=== PATIENT | male | born 1960 | race Caucasian/White ===

== ENCOUNTER 2017-07-21 15:11 | Emergency (ER) | payer MEDICAID ==
[~2017-07-21 15:11] MED LIST: ASPI-611 PO; CYCL-1 PO; GUAI600T89 PO; HYDR-569 PO; LEVA15HF4 INH
== END 2017-07-21 18:48 | disposition left against medical advice (07) ==
LOC: ER 15:12
DX: R06.00 Dyspnea, unspecified (principal); Z53.21 Procedure and treatment not carried out due to patient leaving prior to being seen by health care provider
CPT/HCPCS: 96375

== ENCOUNTER 2017-10-17 16:59 | Emergency (ER) | payer MEDICAID ==
[~2017-10-17] VITALS: Ht 170.2 cm; Wt 87.0 kg
[2017-10-17 17:16] VITALS: BP 131/96
== END 2017-10-17 18:29 | disposition home or self-care (01) ==
LOC: ER 17:01
DX: F10.10 Alcohol abuse, uncomplicated (principal); J44.9 Chronic obstructive pulmonary disease, unspecified; G89.29 Other chronic pain; Z98.890 Other specified postprocedural states; F12.90 Cannabis use, unspecified, uncomplicated; Z59.0 Homelessness; Z56.0 Unemployment, unspecified; Z88.5 Allergy status to narcotic agent; Z88.2 Allergy status to sulfonamides; Z79.82 Long term (current) use of aspirin; Z79.899 Other long term (current) drug therapy
CPT/HCPCS: 71045; 99283

== ENCOUNTER 2018-01-10 20:57 | Inpatient (IN) | payer MEDICAID ==
[~2018-01-10] VITALS: Ht 170.2 cm; Wt 85.0 kg
[2018-01-10 22:06] LABS: BASOPHILS % (AUTO) 0.3 % (0-1); EOSINOPHILS % (AUTO) 0.2 % (0-6); HEMATOCRIT 42.1 % (42.0-52.0); HEMOGLOBIN 14.6 g/dl (14.0-17.9); LYMPHOCYTES # (AUTO) 1.1 X10'3 (1.1-4.8); LYMPHOCYTES % (AUTO) 6.6 % (21-51); MEAN CORPUSCULAR HEMOGLOBIN 31.9 PG (27.0-31.0); MEAN CORPUSCULAR HGB CONC 34.7 % (33.0-36.5); MEAN CORPUSCULAR VOLUME 91.9 FL (78-98); MEAN PLATELET VOLUME 7.5 FL (7.4-10.4); MONOCYTES # (AUTO) 0.9 X10'3 (0-0.9); MONOCYTES % (AUTO) 5.3 % (2-12); NEUTROPHILS # (AUTO) 14.5 X10'3 (1.8-7.7); NEUTROPHILS % (AUTO) 87.6 % (42-75); PLATELET COUNT 346 X10'3 (140-440); RED BLOOD COUNT 4.58 X10'6 (4.70-6.10); RED CELL DISTRIBUTION WIDTH 11.9 % (11.5-14.5); WHITE BLOOD COUNT 16.6 X10'3 (4.5-11.0)
[2018-01-10] MEDS ORDERED: LORazepam 1 MG tablet PO ONE (22:15)
[2018-01-10 22:16] LABS: ETHANOL 0.033 GM/DL (0.0-0.010)
[2018-01-10] MEDS: diphenhydrAMINE 25mg capsule PO ONE ×2 (22:25→22:53)
[2018-01-10] MEDS: clindamycin 150mg capsule PO SCH (22:25)
[2018-01-10 23:03] LABS: URINE AMPHETAMINE SCREEN POSITIVE (Neg); URINE BARBITUATE SCREEN NEGATIVE (Neg); URINE BENZODIAZEPINES SCREEN NEGATIVE (Neg); URINE CANNABINOID SCREEN POSITIVE (Neg); URINE COCAINE SCREEN NEGATIVE (Neg); URINE METHADONE SCREEN NEGATIVE (Neg); URINE OPIATE SCREEN POSITIVE (Neg); URINE PHENCYCLIDINE SCREEN NEGATIVE (Neg)
[2018-01-10] MEDS ORDERED: OLANZapine 5mg rapidly disint. tablet PO ONE (23:05)
[2018-01-11] MEDS ORDERED: haloperidol lactate 5mg/ml inj IM ONE (01:05)
[2018-01-11] MEDS ORDERED: diphenhydrAMINE 50 mg/ml inj IM ONE (01:05)
[2018-01-11] MEDS ORDERED: LORazepam 2 mg/ml vial IM ONE (01:05)
[2018-01-11] MEDS: clindamycin 150mg capsule PO SCH ×4 (04:07→20:19)
[2018-01-11 05:59] LABS: ALBUMIN 4.4 G/DL (3.4-5.0); ANION GAP 17 (8-16); BLOOD UREA NITROGEN 21 MG/DL (7-18); BUN/CREATININE RATIO 20.2 (5.4-32.0); CALCIUM 9.4 MG/DL (8.5-10.1); CHLORIDE 98 MMOL/L (99-107); CREATININE 1.04 MG/DL (0.60-1.10); GLUCOSE 97 MG/DL (70-104); SODIUM 134 MMOL/L (135-145); TOTAL CARBON DIOXIDE 18.9 MMOL/L (24-32); eGFR 74 ML/MIN
[2018-01-11] MEDS ORDERED: normal saline 1000ML IV soln IV ONE (07:15)
[2018-01-11] MEDS ORDERED: piperacillin/tazo 3.375gm/50ml 50 ML IV ONE (07:15)
[2018-01-11] MEDS ORDERED: vancomycin/NS 1 GM ADD-VANTAGE 250 ML IV ONE (07:15)
[2018-01-11] MEDS ORDERED: iohexol 300mg/ml 100ml inj. ONE (07:28)
[2018-01-11] MEDS ORDERED: magnesium 1gm/100ml D5W IVPB 100 ML IV PRN (15:20)
[2018-01-11] MEDS ORDERED: magnesium Cl slow-release 64mg tablet PO PRN (15:20)
[2018-01-11] MEDS: K and/or MAG REPLACEMENT MC SCH (15:20)
[2018-01-11] MEDS ORDERED: mag hydrox/Alum hydrox/simeth 30ml oral suspension PO PRN (15:20)
[2018-01-11] MEDS ORDERED: magnesium hydroxide 30ml (MOM) UD suspension PO PRN (15:20)
[2018-01-11] MEDS ORDERED: potassium Cl 40MEQ/NS 500ml 500 ML IV PRN ×2 (15:20)
[2018-01-11] MEDS ORDERED: ondansetron/PF 4mg/2ml inj IV PRN (15:20)
[2018-01-11] MEDS ORDERED: magnesium 4gm in 100ml NS 100 ML IV PRN (15:20)
[2018-01-11] MEDS ORDERED: acetaminophen 325mg tablet PO PRN ×2 (15:20)
[2018-01-11] MEDS ORDERED: diphenhydrAMINE 25mg capsule PO PRN (15:20)
[2018-01-11] MEDS ORDERED: potassium Cl 20 mEq SR tablet PO PRN ×2 (15:20)
[2018-01-11] MEDS ORDERED: HYDROcodone/acetaminophen 5mg/325mg tablet PO PRN (15:20)
[2018-01-11] MEDS: normal saline 1000ml 1,000 ML IV SCH (15:52)
[2018-01-11 16:32] LABS: COLOR,URINE YELLOW (Yellow); GLUCOSE, URINE NEGATIVE (Neg); KETONES,URINE >=80 mg/dl (Neg); LEUKOCYTE ESTERASE ,URINE SMALL (Neg); NITRITES, URINE NEGATIVE (Neg); OCCULT BLOOD,URINE NEGATIVE (Neg); PROTEIN,URINE NEGATIVE (Neg)
[2018-01-11 16:35] LABS: UA COLLECTION TYPE URINAL
[2018-01-11 16:36] LABS: CLARITY,URINE Cloudy (Clear)
[2018-01-11 16:41] LABS: BACTERIA,URINE NONE SEEN /HPF (Neg); RBC,URINE NONE SEEN /HPF (0-2); SQUAMOUS EPITHELIAL CELL,UR FEW /LPF (FEW); WBC,URINE 0-4 /HPF (0-4)
[2018-01-11 16:43] LABS: AMORPHOUS URATES 4+
[2018-01-11 17:00] VITALS: BP 155/89
[2018-01-11] MEDS ORDERED: LORazepam 2 mg/ml vial IV PRN (17:00)
[2018-01-11] MEDS ORDERED: haloperidol 5mg tablet PO PRN (17:00)
[2018-01-11] MEDS ORDERED: thiamine inj. 100 MG in normal saline 100ml IV soln 100 ML IV ONE (17:00)
[2018-01-11] MEDS ORDERED: haloperidol lactate 5mg/ml inj IM PRN (17:00)
[2018-01-11] MEDS ORDERED: dicyclomine 10 MG capsule PO PRN (17:00)
[2018-01-11 18:00] VITALS: BP 141/80
[2018-01-11] MEDS: ipratropium/albuterol 3ml nebule NEB SCH ×2 (19:30→23:04)
[2018-01-11] MEDS: lactobacillus rhamnosus 10,000 MMU CELLS/CAPSULE PO SCH (20:19)
[2018-01-11] MEDS: heparin, porcine 5000 units/ml vial SQ SCH (20:19)
[2018-01-11] MEDS: sodium bicarbonate 650mg tablet PO SCH (20:19)
[2018-01-11] MEDS ORDERED: SERT25TA PO (20:37)
[2018-01-11] MEDS ORDERED: GABA-532 PO (20:39)
[2018-01-11] MEDS ORDERED: temazepam 15mg capsule PO PRN (21:00)
[2018-01-11] MEDS: piperacillin/tazo 3.375gm/50ml 50 ML IV SCH (21:21)
[2018-01-11] MEDS: HYDROcodone/acetaminophen 10/325mg tab PO PRN (21:21)
[2018-01-12] VITALS: BP 123/81
[2018-01-12] MEDS ORDERED: vancomycin inj 1,250 MG in normal saline 250ml IV soln 250 ML IV SCH ×2
[2018-01-12] MEDS: piperacillin/tazo 3.375gm/50ml 50 ML IV SCH ×4 (02:05→19:17)
[2018-01-12] MEDS: clindamycin 150mg capsule PO SCH ×4 (02:05→19:18)
[2018-01-12] MEDS: ipratropium/albuterol 3ml nebule NEB SCH ×3 (03:00→11:00)
[2018-01-12] MEDS: HYDROcodone/acetaminophen 10/325mg tab PO PRN ×4 (03:48→22:45)
[2018-01-12] MEDS: vancomycin inj 1,250 MG in normal saline 250ml IV soln 250 ML IV SCH ×3 (03:48→20:27)
[2018-01-12] MEDS: normal saline 1000ml 1,000 ML IV SCH ×3 (05:51→17:48)
[2018-01-12 07:00] VITALS: BP 121/76
[2018-01-12] MEDS: heparin, porcine 5000 units/ml vial SQ SCH ×2 (08:00→19:18)
[2018-01-12] MEDS: K and/or MAG REPLACEMENT MC SCH (08:00)
[2018-01-12 08:23] LABS: C DIFF ANTIGEN SEE COMMENTS (NEGATIVE); C DIFF SPECIMEN=DIARRHEA? ACCEPTABLE; C DIFFICILE TOXINS A&B NEGATIVE (Neg)
[2018-01-12] MEDS: thiamine 100mg tablet PO SCH (08:26)
[2018-01-12] MEDS: multivitamins, therapeutics tablet PO SCH (08:27)
[2018-01-12] MEDS: pantoprazole 40mg Tablet.DR PO SCH (08:27)
[2018-01-12] MEDS: sodium bicarbonate 650mg tablet PO SCH ×3 (08:27→20:29)
[2018-01-12] MEDS: folic acid 1mg tablet PO SCH (08:27)
[2018-01-12] MEDS: lactobacillus rhamnosus 10,000 MMU CELLS/CAPSULE PO SCH ×2 (08:27→19:18)
[2018-01-12 08:45] LABS: CRYPTOSPORIDIUM AG NEGATIVE (Neg); GIARDIA LAMBLIA AG NEGATIVE (Neg)
[2018-01-12 12:02] LABS: C DIFF TOXIN (LAMP) NEGATIVE (NEG)
[2018-01-12 12:16] VITALS: BP 127/81
[2018-01-12] MEDS ORDERED: ipratropium/albuterol 3ml nebule NEB PRN (13:55)
[2018-01-12 15:25] LABS: BASOPHILS % (AUTO) 0.5 % (0-1); EOSINOPHILS # (AUTO) 0.2 X10'3 (0-0.9); EOSINOPHILS % (AUTO) 2.6 % (0-6); HEMOGLOBIN 12.7 g/dl (14.0-17.9); LYMPHOCYTES # (AUTO) 1.8 X10'3 (1.1-4.8); MEAN CORPUSCULAR HEMOGLOBIN 32.3 PG (27.0-31.0); MEAN CORPUSCULAR HGB CONC 35.2 % (33.0-36.5); MEAN CORPUSCULAR VOLUME 91.6 FL (78-98); MEAN PLATELET VOLUME 7.9 FL (7.4-10.4); MONOCYTES # (AUTO) 0.9 X10'3 (0-0.9); MONOCYTES % (AUTO) 10.7 % (2-12); NEUTROPHILS # (AUTO) 5.8 X10'3 (1.8-7.7); NEUTROPHILS % (AUTO) 65.2 % (42-75); PLATELET COUNT 267 X10'3 (140-440); RED BLOOD COUNT 3.93 X10'6 (4.70-6.10); RED CELL DISTRIBUTION WIDTH 11.9 % (11.5-14.5); WHITE BLOOD COUNT 8.8 X10'3 (4.5-11.0)
[2018-01-12 15:39] LABS: ALANINE AMINOTRANSFERASE 35 U/L (12-78); ALBUMIN 2.8 G/DL (3.4-5.0); ALBUMIN/GLOBULIN RATIO 0.7 (1.1-1.5); ALKALINE PHOSPHATASE 59 IU/L (46-116); ANION GAP 9 (8-16); ASPARTATE AMINO TRANSFERASE 48 U/L (10-37); BILIRUBIN,TOTAL 0.3 MG/DL (0.1-1.0); BLOOD UREA NITROGEN 17 MG/DL (7-18); BUN/CREATININE RATIO 18.1 (5.4-32.0); CHLORIDE 104 MMOL/L (99-107); CREATININE 0.94 MG/DL (0.60-1.10); GLUCOSE 117 MG/DL (70-104); PHOSPHORUS 2.6 MG/DL (2.3-4.5); POTASSIUM 3.6 MMOL/L (3.5-5.1); SODIUM 139 MMOL/L (135-145); TOTAL CARBON DIOXIDE 25.7 MMOL/L (24-32); TOTAL PROTEIN 6.6 G/DL (6.4-8.2); eGFR 83 ML/MIN
[2018-01-12] MEDS ORDERED: non-formulary drug (Levalbuterol Tartrate (Xopenex Hfa) 2 PUFFS) INH SCH (16:20)
[2018-01-12] MEDS ORDERED: cyclobenzaprine 10mg tablet PO PRN (16:20)
[2018-01-12] MEDS: sertraline 25mg tablet PO SCH (17:49)
[2018-01-12 18:00] VITALS: BP 136/75
[2018-01-12] MEDS: guaiFENesin ER 600mg tablet PO SCH (19:18)
[2018-01-12] MEDS ORDERED: gabapentin 300mg capsule PO SCH (21:00)
[2018-01-12] MEDS ORDERED: VANCOMYCIN LEVEL IV ONE (23:30)
[2018-01-13] VITALS: BP 139/74
[2018-01-13] MEDS ORDERED: VANCOMYCIN LEVEL IV ONE (02:30)
[2018-01-13] MEDS: piperacillin/tazo 3.375gm/50ml 50 ML IV SCH ×3 (02:50→13:15)
[2018-01-13] MEDS: clindamycin 150mg capsule PO SCH ×3 (02:50→13:15)
[2018-01-13] MEDS: vancomycin inj 1,250 MG in normal saline 250ml IV soln 250 ML IV SCH ×2 (03:00→11:00)
[2018-01-13] MEDS: K and/or MAG REPLACEMENT MC SCH (07:10)
[2018-01-13] MEDS: normal saline 1000ml 1,000 ML IV SCH (07:11)
[2018-01-13 07:19] VITALS: BP 143/78
[2018-01-13] MEDS: heparin, porcine 5000 units/ml vial SQ SCH (08:00)
[2018-01-13] MEDS ORDERED: aspirin 81mg tab.chew PO SCH (08:30)
[2018-01-13] MEDS: lactobacillus rhamnosus 10,000 MMU CELLS/CAPSULE PO SCH (08:44)
[2018-01-13] MEDS: pantoprazole 40mg Tablet.DR PO SCH (08:44)
[2018-01-13] MEDS: guaiFENesin ER 600mg tablet PO SCH (08:44)
[2018-01-13] MEDS: thiamine 100mg tablet PO SCH (08:44)
[2018-01-13] MEDS: HYDROcodone/acetaminophen 10/325mg tab PO PRN ×2 (08:44→13:15)
[2018-01-13] MEDS: multivitamins, therapeutics tablet PO SCH (08:45)
[2018-01-13] MEDS: sodium bicarbonate 650mg tablet PO SCH ×2 (08:45→13:15)
[2018-01-13] MEDS: folic acid 1mg tablet PO SCH (08:45)
[2018-01-13] MEDS: sertraline 25mg tablet PO SCH (08:52)
[2018-01-13] MEDS ORDERED: PANT40TA4 PO (09:28)
[2018-01-13] MEDS ORDERED: LACT1CAP26 PO ×2 (09:28→14:48)
[2018-01-13] MEDS ORDERED: CLE150C PO (09:28)
[2018-01-13] MEDS ORDERED: FOLI1TAB16 PO ×2 (09:28→14:48)
[2018-01-13] MEDS ORDERED: THI100T PO ×2 (09:28→14:48)
[2018-01-13] MEDS ORDERED: MULT-1179 PO (09:28)
[2018-01-13] MEDS ORDERED: CLIN300C85 PO (14:41)
[2018-01-13] MEDS ORDERED: GUAI600T89 PO (14:48)
[2018-01-13] MEDS ORDERED: CYCL-394 PO (14:48)
[2018-01-13] MEDS ORDERED: PANT-47 PO (14:48)
[2018-01-13] MEDS ORDERED: HYDR-569 PO (14:48)
[2018-01-13] MEDS ORDERED: SERT25TA PO (14:48)
[2018-01-13] MEDS ORDERED: LEVA15HF4 INH (14:48)
[2018-01-13] MEDS ORDERED: MULT-955 PO (14:48)
[2018-01-13] MEDS ORDERED: LORazepam 2 mg/ml vial IV PRN (17:00)
[2018-01-13] MEDS ORDERED: LORazepam 1 MG tablet PO PRN (17:00)
[2018-01-14] MEDS ORDERED: VANCOMYCIN LEVEL IV ONE (10:30)
[2018-01-15] MEDS ORDERED: LORazepam 1 MG tablet PO PRN (17:00)
[2018-01-15] MEDS ORDERED: LORazepam 2 mg/ml vial IV PRN (17:00)
== END 2018-01-13 13:27 | DRG 720 ==
LOC: ER 20:57 → ED HOLD 01-11 15:20 → SUR 3N 01-11 16:37
PROVIDERS: ADMIT Family Medicine; ATTEND Family Medicine
PROC: BP2N1ZZ Computerized Tomography (CT Scan) of Right Hand using Low Osmolar Contrast (ICD-10-PCS; principal; 2018-01-11)
DX: A41.9 Sepsis, unspecified organism (principal); E87.2 Acidosis; K74.60 Unspecified cirrhosis of liver; R45.851 Suicidal ideations; F12.10 Cannabis abuse, uncomplicated; F15.159 Other stimulant abuse with stimulant-induced psychotic disorder, unspecified; F17.200 Nicotine dependence, unspecified, uncomplicated; J44.9 Chronic obstructive pulmonary disease, unspecified; L03.113 Cellulitis of right upper limb; B19.20 Unspecified viral hepatitis C without hepatic coma; F32.9 Major depressive disorder, single episode, unspecified; F41.9 Anxiety disorder, unspecified; G89.29 Other chronic pain; M19.90 Unspecified osteoarthritis, unspecified site; M54.9 Dorsalgia, unspecified; R19.7 Diarrhea, unspecified; Z59.0 Homelessness; Z86.14 Personal history of Methicillin resistant Staphylococcus aureus infection; Z91.19 Patient's noncompliance with other medical treatment and regimen; Z88.5 Allergy status to narcotic agent; Z88.2 Allergy status to sulfonamides; Z82.5 Family history of asthma and other chronic lower respiratory diseases; Z71.6 Tobacco abuse counseling; Z71.51 Drug abuse counseling and surveillance of drug abuser
CPT/HCPCS: 36415; 73201; 80048; 80053; 80305; 80320; 81001; 83605; 83735; 84100; 85025; 87040; 87070; 87088; 87324; 87328; 87329; 87336; 87449; 87493; 93306; 94640; 94760; 96361; 96365; 96366; 96368; 96372; 99285; J1200; J1630; J1644; J2060; J2543; J3370; J3411; J7030; Q0163; Q9967

== ENCOUNTER 2018-01-13 13:41 | Emergency (ER) | payer MEDICAID ==
[~2018-01-13] VITALS: Ht 172.7 cm; Wt 82.0 kg
[~2018-01-13 13:41] MED LIST changes: +CLE150C PO; +FOLI1TAB16 PO; +GABA-532 PO; +HYDR-4383 PO; -HYDR-569 PO; +LACT1CAP26 PO; +MULT-1179 PO; +PANT40TA4 PO; +SERT25TA PO; +THI100T PO
[2018-01-13] MEDS ORDERED: CLIN300C85 PO (14:41)
[2018-01-13] MEDS ORDERED: FOLI1TAB16 PO (14:48)
[2018-01-13] MEDS ORDERED: GUAI600T89 PO (14:48)
[2018-01-13] MEDS ORDERED: SERT25TA PO (14:48)
[2018-01-13] MEDS ORDERED: MULT-955 PO (14:48)
[2018-01-13] MEDS ORDERED: CYCL-394 PO (14:48)
[2018-01-13] MEDS ORDERED: LACT1CAP26 PO (14:48)
[2018-01-13] MEDS ORDERED: LEVA15HF4 INH (14:48)
[2018-01-13] MEDS ORDERED: HYDR-4383 PO (14:48)
[2018-01-13] MEDS ORDERED: THI100T PO (14:48)
[2018-01-13] MEDS ORDERED: PANT-47 PO (14:48)
[2018-01-13] MEDS ORDERED: albuterol 2.5 MG/3 ML nebule NEB PRN (15:50)
[2018-01-13] MEDS ORDERED: cyclobenzaprine 10mg tablet PO PRN (15:50)
[2018-01-13] MEDS: HYDROcodone/acetaminophen 5mg/325mg tablet PO PRN (17:38)
[2018-01-13] MEDS ORDERED: LORazepam 1 MG tablet PO ONE (18:55)
[2018-01-13] MEDS ORDERED: haloperidol 5mg tablet PO ONE (18:55)
[2018-01-13] MEDS: lactobacillus rhamnosus 10,000 MMU CELLS/CAPSULE PO SCH (19:12)
[2018-01-13] MEDS: clindamycin 150mg capsule PO SCH (19:12)
[2018-01-13] MEDS: guaiFENesin ER 600mg tablet PO SCH (19:12)
[2018-01-13] MEDS: gabapentin 300mg capsule PO SCH (20:03)
[2018-01-14] MEDS: clindamycin 150mg capsule PO SCH ×4 (05:37→19:26)
[2018-01-14] MEDS ORDERED: aspirin 81mg tablet.DR PO SCH (08:00)
[2018-01-14] MEDS ORDERED: pantoprazole 40mg Tablet.DR PO SCH (08:00)
[2018-01-14] MEDS ORDERED: sertraline 50mg tablet PO SCH ×2 (08:00)
[2018-01-14] MEDS ORDERED: folic acid 1mg tablet PO SCH (08:00)
[2018-01-14] MEDS ORDERED: thiamine 100mg tablet PO SCH (08:00)
[2018-01-14] MEDS ORDERED: multivitamins, therapeutics tablet PO SCH (08:00)
[2018-01-14] MEDS: guaiFENesin ER 600mg tablet PO SCH ×2 (08:16→19:36)
[2018-01-14] MEDS: lactobacillus rhamnosus 10,000 MMU CELLS/CAPSULE PO SCH ×2 (08:16→19:26)
[2018-01-14] MEDS: HYDROcodone/acetaminophen 5mg/325mg tablet PO PRN ×2 (08:46→14:20)
[2018-01-14 17:47] VITALS: BP 129/69
[2018-01-14] MEDS: gabapentin 300mg capsule PO SCH (19:26)
== END 2018-01-14 20:00 ==
LOC: ER 13:42
DX: R45.81 Low self-esteem (principal); L03.113 Cellulitis of right upper limb; F41.9 Anxiety disorder, unspecified; F32.9 Major depressive disorder, single episode, unspecified; G89.29 Other chronic pain; M19.90 Unspecified osteoarthritis, unspecified site; J44.9 Chronic obstructive pulmonary disease, unspecified; F12.90 Cannabis use, unspecified, uncomplicated; F15.90 Other stimulant use, unspecified, uncomplicated; Z88.5 Allergy status to narcotic agent; Z88.2 Allergy status to sulfonamides; Z79.82 Long term (current) use of aspirin; Z79.2 Long term (current) use of antibiotics; Z79.899 Other long term (current) drug therapy; Z90.89 Acquired absence of other organs; Z98.890 Other specified postprocedural states; Z59.0 Homelessness; Z56.0 Unemployment, unspecified
CPT/HCPCS: 36415; 84443; 99285

== ENCOUNTER 2018-12-25 22:08 | Emergency (ER) | payer MEDICAID ==
[~2018-12-25] VITALS: Ht 170.2 cm; Wt 81.0 kg
[~2018-12-25 22:08] MED LIST changes: -CLE150C PO; +CLIN-96 PO; -CYCL-1 PO; +CYCL-394 PO; -GUAI600T89 PO; -HYDR-4383 PO; -MULT-1179 PO; +MULT-955 PO; +PANT-47 PO; -PANT40TA4 PO
[2018-12-25 22:29] VITALS: BP 135/93
--- NOTE | 2018-12-26 00:33 | NUR ---
PT HERE FOR MED CLEARENCE TO GO TO [facility].PT IS CHRONIC ALCHOL ABUSER .HAD 5 PT OF ALCHOL 6 HR AGO.H/O STAGE 4 CIRROHSIS.
== END 2018-12-26 01:10 | disposition home or self-care (01) ==
LOC: ER 22:08
DX: F15.10 Other stimulant abuse, uncomplicated (principal); F10.10 Alcohol abuse, uncomplicated; J44.9 Chronic obstructive pulmonary disease, unspecified; M19.90 Unspecified osteoarthritis, unspecified site; G89.29 Other chronic pain; F41.9 Anxiety disorder, unspecified; F32.9 Major depressive disorder, single episode, unspecified; F12.90 Cannabis use, unspecified, uncomplicated; Z59.0 Homelessness; Z56.0 Unemployment, unspecified; Z98.890 Other specified postprocedural states; Z90.89 Acquired absence of other organs; Z88.5 Allergy status to narcotic agent; Z88.2 Allergy status to sulfonamides; Z79.82 Long term (current) use of aspirin; Z79.899 Other long term (current) drug therapy; Y90.9 Presence of alcohol in blood, level not specified
CPT/HCPCS: 99284

== ENCOUNTER 2018-12-26 01:49 | Emergency (ER) | payer MEDICAID ==
[~2018-12-26] VITALS: Ht 170.2 cm; Wt 72.0 kg
[2018-12-26 01:53] VITALS: BP 136/72
--- NOTE | 2018-12-26 02:19 | NUR ---
Patient escorted off hospital property by Security after acting out in the lobby. Dr Morton informed.
== END 2018-12-26 02:23 | disposition left against medical advice (07) ==
LOC: ER 01:50
DX: R44.0 Auditory hallucinations (principal); F15.90 Other stimulant use, unspecified, uncomplicated; Z53.21 Procedure and treatment not carried out due to patient leaving prior to being seen by health care provider

== ENCOUNTER 2020-06-20 18:34 | Emergency (ER) | payer MEDICAID ==
[~2020-06-20] VITALS: Ht 170.2 cm; Wt 77.2 kg
[~2020-06-20 18:34] MED LIST changes: -CLIN-96 PO; +CLIN-97 PO; +DULO60CA65 PO; +HYDR-3686 PO; +TRAM50TA2 PO
[2020-06-20 18:39] VITALS: BP 179/106
[2020-06-20 19:57] LABS: BASOPHILS # (AUTO) 0.1 X10'3 (0-0.2); BASOPHILS % (AUTO) 1.2 % (0-1); EOSINOPHILS # (AUTO) 0.1 X10'3 (0-0.9); EOSINOPHILS % (AUTO) 2.7 % (0-6); HEMATOCRIT 41.1 % (42.0-52.0); HEMOGLOBIN 14.5 g/dl (14.0-17.9); LYMPHOCYTES % (AUTO) 36.5 % (21-51); MEAN CORPUSCULAR HGB CONC 35.3 g/dL (33.0-36.5); MEAN CORPUSCULAR VOLUME 93.4 FL (78-98); MEAN PLATELET VOLUME 7.2 FL (7.4-10.4); MONOCYTES # (AUTO) 0.4 X10'3 (0-0.9); MONOCYTES % (AUTO) 8.1 % (2-12); NEUTROPHILS # (AUTO) 2.8 X10'3 (1.8-7.7); NEUTROPHILS % (AUTO) 51.5 % (42-75); PLATELET COUNT 259 X10'3 (140-440); RED BLOOD COUNT 4.41 X10'6 (4.70-6.10); RED CELL DISTRIBUTION WIDTH 13.8 % (11.5-14.5); WHITE BLOOD COUNT 5.4 X10'3 (4.5-11.0)
--- NOTE | 2020-06-20 20:02 | NUR ---
notified by Lab that patient was difficult to draw and patient had difficulty cooperating with phelbotomist.
[2020-06-20 20:09] LABS: ALANINE AMINOTRANSFERASE 87 U/L (12-78); ALBUMIN 3.7 G/DL (3.4-5.0); ALKALINE PHOSPHATASE 47 IU/L (46-116); ANION GAP 12 (8-16); ASPARTATE AMINO TRANSFERASE 98 U/L (10-37); BILIRUBIN,TOTAL 0.4 MG/DL (0.1-1.0); BLOOD UREA NITROGEN 12 MG/DL (7-18); BUN/CREATININE RATIO 16.9 (5.4-32.0); CALCIUM 8.5 MG/DL (8.5-10.1); CHLORIDE 104 MMOL/L (99-107); CREATININE 0.71 MG/DL (0.60-1.10); GLUCOSE 99 MG/DL (70-104); PARTIAL THROMBOPLASTIN TIME 27 SECONDS (22-32); POTASSIUM 3.3 MMOL/L (3.5-5.1); SODIUM 141 MMOL/L (135-145); TOTAL CARBON DIOXIDE 25.4 MMOL/L (24-32); TOTAL PROTEIN 7.5 G/DL (6.4-8.2); eGFR > 90 ML/MIN
== END 2020-06-20 21:45 | disposition home or self-care (01) ==
LOC: ER 18:35
DX: F10.129 Alcohol abuse with intoxication, unspecified (principal); F15.90 Other stimulant use, unspecified, uncomplicated; J44.9 Chronic obstructive pulmonary disease, unspecified; G89.29 Other chronic pain; M19.90 Unspecified osteoarthritis, unspecified site; F10.10 Alcohol abuse, uncomplicated; F12.90 Cannabis use, unspecified, uncomplicated; F11.90 Opioid use, unspecified, uncomplicated; N18.9 Chronic kidney disease, unspecified; Z86.19 Personal history of other infectious and parasitic diseases; Z87.440 Personal history of urinary (tract) infections; Z56.0 Unemployment, unspecified; Z59.0 Homelessness; Z88.2 Allergy status to sulfonamides; Z88.8 Allergy status to other drugs, medicaments and biological substances; Z79.82 Long term (current) use of aspirin; Z79.2 Long term (current) use of antibiotics; Z79.899 Other long term (current) drug therapy; Y90.9 Presence of alcohol in blood, level not specified
CPT/HCPCS: 36415; 80053; 85025; 85610; 85730; 99284

== ENCOUNTER 2020-12-02 14:17 | Emergency (ER) | payer MEDICAID ==
[~2020-12-02] VITALS: Ht 170.2 cm; Wt 81.8 kg
[2020-12-02 16:33] LABS: BASOPHILS # (AUTO) 0.1 X10'3 (0-0.2); BASOPHILS % (AUTO) 1.1 % (0-1); EOSINOPHILS # (AUTO) 0.2 X10'3 (0-0.9); HEMATOCRIT 42.9 % (42.0-52.0); HEMOGLOBIN 14.7 g/dl (14.0-17.9); LYMPHOCYTES # (AUTO) 2.2 X10'3 (1.1-4.8); LYMPHOCYTES % (AUTO) 33.6 % (21-51); MEAN CORPUSCULAR HEMOGLOBIN 31.7 PG (27.0-31.0); MEAN CORPUSCULAR HGB CONC 34.3 g/dL (33.0-36.5); MEAN CORPUSCULAR VOLUME 92.4 FL (78-98); MEAN PLATELET VOLUME 8.3 FL (7.4-10.4); MONOCYTES # (AUTO) 0.8 X10'3 (0-0.9); MONOCYTES % (AUTO) 11.7 % (2-12); NEUTROPHILS # (AUTO) 3.3 X10'3 (1.8-7.7); NEUTROPHILS % (AUTO) 50.6 % (42-75); PLATELET COUNT 306 X10'3 (140-440); RED BLOOD COUNT 4.64 X10'6 (4.70-6.10); RED CELL DISTRIBUTION WIDTH 13.6 % (11.5-14.5); WHITE BLOOD COUNT 6.5 X10'3 (4.5-11.0)
[2020-12-02 16:39] LABS: URINE AMPHETAMINE SCREEN POSITIVE (Neg); URINE BARBITUATE SCREEN NEGATIVE (Neg); URINE BENZODIAZEPINES SCREEN NEGATIVE (Neg); URINE CANNABINOID SCREEN POSITIVE (Neg); URINE COCAINE SCREEN NEGATIVE (Neg); URINE METHADONE SCREEN NEGATIVE (Neg); URINE OPIATE SCREEN NEGATIVE (Neg); URINE PHENCYCLIDINE SCREEN NEGATIVE (Neg)
[2020-12-02 16:47] LABS: ALANINE AMINOTRANSFERASE 67 U/L (12-78); ALBUMIN 3.6 G/DL (3.4-5.0); ALBUMIN/GLOBULIN RATIO 0.9 (1.1-1.5); ALKALINE PHOSPHATASE 60 IU/L (46-116); ANION GAP 11 (8-16); ASPARTATE AMINO TRANSFERASE 63 U/L (10-37); BILIRUBIN,TOTAL 0.5 MG/DL (0.1-1.0); BLOOD UREA NITROGEN 11 MG/DL (7-18); BUN/CREATININE RATIO 13.1 (5.4-32.0); CALCIUM 8.4 MG/DL (8.5-10.1); CHLORIDE 102 MMOL/L (99-107); CREATININE 0.84 MG/DL (0.60-1.10); ETHANOL < 0.010 GM/DL (0.0-0.010); GLUCOSE 109 MG/DL (70-104); SODIUM 140 MMOL/L (135-145); TOTAL CARBON DIOXIDE 27.3 MMOL/L (24-32); TOTAL PROTEIN 7.7 G/DL (6.4-8.2); eGFR > 90 ML/MIN
[2020-12-02] MEDS ORDERED: potassium Cl 20 mEq SR tablet PO STA (16:52)
--- NOTE | 2020-12-02 18:04 | NUR ---
PACKET FAXED TO [facility]
[2020-12-02 18:27] LABS: CLARITY,URINE CLOUDY (Clear); COLOR,URINE YELLOW (Yellow); GLUCOSE, URINE NEGATIVE (Neg); KETONES,URINE NEGATIVE (Neg); LEUKOCYTE ESTERASE ,URINE SMALL (Neg); NITRITES, URINE NEGATIVE (Neg); OCCULT BLOOD,URINE NEGATIVE (Neg); PH,URINE 5.5 (4.8-8.0); PROTEIN,URINE TRACE mg/dl (Neg); UA COLLECTION TYPE CLN CATCH MIDSTREAM
[2020-12-02 18:36] LABS: AMORPHOUS URATES 4+
[2020-12-02 18:37] LABS: BACTERIA,URINE 1+ /HPF (Neg); RBC,URINE 0-2 /HPF (0-2); SQUAMOUS EPITHELIAL CELL,UR FEW /LPF (FEW)
--- NOTE | 2020-12-02 19:03 | NUR ---
One to one with the patient to assess severity of depressive symptoms and suicidal risk. Assessed for severity of thought disorder and for ETOH withdrawal symptoms. The patient is very dramatic describing all of his symptoms. With each description it was very histrionic. The patient was able to answer all the assessment questions and did not appear distracted by internal stimuli. When asked how he had been sleeping he replied, "I don't get any sleep. They keep chasing me until I fall down and got to sleep...I can't take it anymore. I'm going to kill myself!....I hear screaming voices. They won't shut up. I'm going to stab myself in the chest" When asked how frequently he has been using methamphetamine in the past month he defensibly exclaimed, "I haven't touched the stuff in 3 days! I hear voices even when I don't use meth. I'm off my medications" He could not name any psychiatric medications that he has taken in the past. He reports drinking every day. He stated he has been homeless in the [facility] for the past two years. He stated that he is not able to stay at the [facility] and when asked why he was evasive and refused to state why. He stated that he did not take any psych meds "because I can't get to my appointments. No symptoms of withdrawal at this time.
--- NOTE | 2020-12-02 21:07 | NUR ---
The patient appears to be sleeping
--- NOTE | 2020-12-02 22:36 | NUR ---
The patient is resting on his bed
--- NOTE | 2020-12-02 23:44 | NUR ---
The patient appears to be sleeping
--- NOTE | 2020-12-03 02:05 | NUR ---
The patient is resting on his bed but awake 2nd to agitated peer
--- NOTE | 2020-12-03 04:08 | NUR ---
THe patient appears to be sleeping
[2020-12-03 06:52] VITALS: BP 140/103
--- NOTE | 2020-12-03 07:09 | NUR ---
PT AWAKE AND MUMBLING TO SELF APPEARS TO BE RESPONDING TO INTERNAL STIMULI.
--- NOTE | 2020-12-03 08:49 | NUR ---
PT RESTING ON RIGHT WITH EYES CLOSED AFTER EATING BREAKFAST
--- NOTE | 2020-12-03 10:43 | NUR ---
[facility] AT FOR ASSESSMENT. PT LOUD, YELLING AND CUSSING.
--- NOTE | 2020-12-03 13:11 | NUR ---
PATIENT IS AGGRAVATED AND FEELING ANXIOUS AT PRESENT. ANOTHER CONFUSED PATIENT WAS WALKING INTO HIS ROOM. SITUATION CONTROLLED PER STAFF AND SECURITY.
--- NOTE | 2020-12-03 14:30 | NUR ---
PT AWAKE AND TALKING TO SELF. COVID SWAB DONE FOR PLACEMENT
--- NOTE | 2020-12-03 16:08 | NUR ---
CALL FROM [facility] OFFICE STATING PT HAS BEEN ACCEPTED TO [facility] AT [address] ROSADO.
[2020-12-03] MEDS ORDERED: NO HOME MEDS (18:25)
== END 2020-12-03 17:04 ==
LOC: ER 14:18
DX: R45.851 Suicidal ideations (principal); Z20.822 Contact with and (suspected) exposure to COVID-19; E87.6 Hypokalemia; I25.10 Atherosclerotic heart disease of native coronary artery without angina pectoris; J44.9 Chronic obstructive pulmonary disease, unspecified; G89.29 Other chronic pain; M19.90 Unspecified osteoarthritis, unspecified site; F41.9 Anxiety disorder, unspecified; F32.9 Major depressive disorder, single episode, unspecified; F12.90 Cannabis use, unspecified, uncomplicated; F15.90 Other stimulant use, unspecified, uncomplicated; F11.90 Opioid use, unspecified, uncomplicated; Z86.19 Personal history of other infectious and parasitic diseases; Z87.440 Personal history of urinary (tract) infections; Z90.89 Acquired absence of other organs; Z98.890 Other specified postprocedural states; Z72.89 Other problems related to lifestyle; Z56.0 Unemployment, unspecified; Z59.0 Homelessness; Z88.5 Allergy status to narcotic agent; Z88.2 Allergy status to sulfonamides; Z88.6 Allergy status to analgesic agent; Z79.2 Long term (current) use of antibiotics; Z79.899 Other long term (current) drug therapy
CPT/HCPCS: 36415; 80053; 80305; 80320; 81001; 85025; 87088; 87635; 99285; C9803

== ENCOUNTER 2023-02-03 09:32 | Emergency (ER) | payer MEDICAID ==
[~2023-02-03 09:32] MED LIST changes: -ASPI-611 PO; -CLIN-97 PO; -CYCL-394 PO; -DULO60CA65 PO; -FOLI1TAB16 PO; -GABA-532 PO; -HYDR-3686 PO; -LACT1CAP26 PO; -LEVA15HF4 INH; -MULT-955 PO; +NO HOME MEDS; -PANT-47 PO; -SERT25TA PO; -THI100T PO; -TRAM50TA2 PO
[2023-02-03 09:52] VITALS: TEMP 98
[2023-02-03] MEDS ORDERED: iohexol 350MG/ML 100ml bottle IV ONE (09:55)
--- NOTE | 2023-02-03 10:01 | NUR ---
PT WAS FIGHTING VERBALLY WITH THE LAB TO DRAW HIS BLOOD. HE SAYS THERES SOMETHING WRONG WITH HIS HEAD IN CT. PT REPORTS HE JUST GOT OFF THE AM TRACK TRAIN IN [place]. HE HAS LIVED HERE A WHILE. HE CAME FROM [place] TO [place], TO HERE. HAS NO PLACE TO STAY.
--- NOTE | 2023-02-03 10:04 | NUR ---
PT TALKING BACK TO CT TECHS ABOUT PUTTING IN A IV.
[2023-02-03 10:33] LABS: BASOPHILS # (AUTO) 0.1 X10'3 (0-0.2); BASOPHILS % (AUTO) 0.7 % (0-1); EOSINOPHILS # (AUTO) 0.1 X10'3 (0-0.9); EOSINOPHILS % (AUTO) 1.5 % (0-6); HEMATOCRIT 39.5 % (42.0-52.0); HEMOGLOBIN 13.9 g/dl (14.0-17.9); LYMPHOCYTES # (AUTO) 2.2 X10'3 (1.1-4.8); LYMPHOCYTES % (AUTO) 25.3 % (21-51); MEAN CORPUSCULAR HEMOGLOBIN 31.6 PG (27.0-31.0); MEAN CORPUSCULAR HGB CONC 35.1 g/dL (33.0-36.5); MEAN PLATELET VOLUME 7.9 FL (7.4-10.4); MONOCYTES # (AUTO) 0.5 X10'3 (0-0.9); MONOCYTES % (AUTO) 6.1 % (2-12); NEUTROPHILS # (AUTO) 5.8 X10'3 (1.8-7.7); NEUTROPHILS % (AUTO) 66.4 % (42-75); PLATELET COUNT 289 X10'3 (140-440); RED BLOOD COUNT 4.39 X10'6 (4.70-6.10); RED CELL DISTRIBUTION WIDTH 13.6 % (11.5-14.5); WHITE BLOOD COUNT 8.8 X10'3 (4.5-11.0)
[2023-02-03 10:50] LABS: ALANINE AMINOTRANSFERASE 29 U/L (12-78); ALBUMIN 3.2 G/DL (3.4-5.0); ALBUMIN/GLOBULIN RATIO 0.9 (1.1-1.5); ALKALINE PHOSPHATASE 53 IU/L (46-116); ANION GAP 11 (8-16); ASPARTATE AMINO TRANSFERASE 22 U/L (10-37); BILIRUBIN,TOTAL 0.4 MG/DL (0.1-1.0); BLOOD UREA NITROGEN 8 MG/DL (7-18); CALCIUM 8.5 MG/DL (8.5-10.1); CHLORIDE 102 MMOL/L (99-107); CREATININE 0.73 MG/DL (0.60-1.10); GLUCOSE 217 MG/DL (70-104); POTASSIUM 3.6 MMOL/L (3.5-5.1); SODIUM 137 MMOL/L (135-145); TOTAL CARBON DIOXIDE 24.5 MMOL/L (24-32); TOTAL PROTEIN 6.7 G/DL (6.4-8.2); eGFR > 90 ML/MIN
[2023-02-03 10:56] LABS: PRO BRAIN NATRIURETIC PEPTIDE 98 PG/ML (0-125)
--- NOTE | 2023-02-03 11:10 | NUR ---
STROKE ALERT CANCELED PER DR LEO.
[2023-02-03 11:17] VITALS: BP 95/53; PULSE 86; RESP 18; O2SAT 95
[2023-02-03 11:39] LABS: ETHANOL 101 MG/DL (<10)
[2023-02-03 11:41] LABS: BILIRUBIN,URINE NEGATIVE (Neg); CLARITY,URINE CLEAR (Clear); COLOR,URINE STRAW (Yellow); GLUCOSE, URINE NEGATIVE (Neg); KETONES,URINE NEGATIVE (Neg); LEUKOCYTE ESTERASE ,URINE TRACE (Neg); NITRITES, URINE NEGATIVE (Neg); OCCULT BLOOD,URINE NEGATIVE (Neg); PROTEIN,URINE NEGATIVE (Neg); UROBILINOGEN,URINE 0.2 E.U/dL (0.2-1.0)
[2023-02-03 11:44] LABS: UA COLLECTION TYPE CLN CATCH MIDSTREAM
[2023-02-03 11:46] LABS: RBC,URINE NONE SEEN /HPF (0-2); WBC,URINE 0-4 /HPF (0-4)
[2023-02-03 11:47] LABS: BACTERIA,URINE NONE SEEN /HPF (Neg); MUCUS STRANDS NONE SEEN /LPF (Neg); SQUAMOUS EPITHELIAL CELL,UR FEW /LPF (FEW)
[2023-02-03 11:49] LABS: URINE AMPHETAMINE SCREEN NEGATIVE (Neg); URINE BARBITUATE SCREEN NEGATIVE (Neg); URINE BENZODIAZEPINES SCREEN NEGATIVE (Neg); URINE CANNABINOID SCREEN NEGATIVE (Neg); URINE COCAINE SCREEN NEGATIVE (Neg); URINE METHADONE SCREEN NEGATIVE (Neg); URINE OPIATE SCREEN NEGATIVE (Neg); URINE PHENCYCLIDINE SCREEN NEGATIVE (Neg)
== END 2023-02-03 12:38 | disposition home or self-care (01) ==
LOC: ER 09:32
DX: R53.1 Weakness (principal); R20.0 Anesthesia of skin; F10.129 Alcohol abuse with intoxication, unspecified; H61.23 Impacted cerumen, bilateral; F20.9 Schizophrenia, unspecified; Y90.5 Blood alcohol level of 100-119 mg/100 ml; R60.0 Localized edema; I25.10 Atherosclerotic heart disease of native coronary artery without angina pectoris; J44.9 Chronic obstructive pulmonary disease, unspecified; M19.90 Unspecified osteoarthritis, unspecified site; F17.200 Nicotine dependence, unspecified, uncomplicated; E11.22 Type 2 diabetes mellitus with diabetic chronic kidney disease; N18.9 Chronic kidney disease, unspecified; F12.90 Cannabis use, unspecified, uncomplicated; F15.90 Other stimulant use, unspecified, uncomplicated; Z56.0 Unemployment, unspecified; Z59.00 Homelessness unspecified
CPT/HCPCS: 36415; 70450; 71045; 71275; 74174; 80053; 80305; 80320; 81001; 83880; 84484; 85025; 93005; 99285; J3490; Q9967

== ENCOUNTER 2024-10-07 09:30 | Emergency (ER) | payer MEDICAID ==
[~2024-10-07] VITALS: Ht 167.6 cm; Wt 68.2 kg
[2024-10-07 09:40] VITALS: BP 108/47; PULSE 73; RESP 18; TEMP 97.4; O2SAT 87
--- NOTE | 2024-10-07 09:54 | Physician Documentation ---
History of Present Illness ~ Chief Complaint: Rib pain Stated Complaint: 3 BROKEN RIBS/PNEUMONIA/DIFF BREATHING Time Seen by MD: 09:43 Primary Medical Doctor: Alvin Shaw [facility] 64-year-old male presents to the ED with a complaint of right rib pain. He told the ER nurse that he had CPR done 10 days ago and developed rib fractures from this. He is telling me that he had a fall 10 days ago which caused his rib fractures. He states he thinks he has pneumonia. Day of Onset: October 07, 2024 Tetanus within 5 Years?: Yes Allergies: Coded Allergies: codeine (Verified Allergy, Intermediate, RASH, 10/07/24) Sulfa (Sulfonamide Antibiotics) (Verified Allergy, Unknown, 10/07/24) acetaminophen (Verified Allergy, Unknown, 10/07/24) Active Prescriptions See Medication Reconciliation Form. Medication Reconciliation Miscellaneous Medications Home Med List (No Home Medications), (Reported) Past Medical History Past Medical History: Coronary Artery Disease, Vascular Disease, COPD, Diverticulitis, Hepatitis C, Chronic Kidney Disease, UTI, Arthritis, Chronic Pain, Chronic Back Pain, Anxiety, Depression Past Surgical History: orthopedic surgeries, tonsillectomy Patient History: (COPD) Chronic obstructive lung disease MOTHER Alcohol Use: Abuse Drug Use: marijuana, methamphetamine, heroin Lives with: Spouse Lives In: Homeless Occupation: unemployed Review of Systems All Other Systems at this time: Reviewed and Negative ROS As stated above in the HPI, otherwise all systems are reviewed and negative. Physical Exam Vital Signs: Temperature: 97.4, Source: Temporal, Heart Rate: 73, Respiratory Rate: 18, BP: 108/47, Pulse Oximetry: 87, Weight: 68.200 Physical Exam General: Alert, no apparent distress. Respiratory: Lungs clear, no respiratory distress. Chest: No accessory muscle use. Tender to the right intercostals Cardiovascular: Regular rate and rhythm, no murmurs. Psychiatric: Normal mood and affect. Skin: Normal color, warm and dry. No edema, no ecchymosis. Progress Results/Orders Results/Orders Orders - ADITI GOMEZ MANAGEMENT CONSULTANT [facility] Chest (10/07/24 10:12) Completed Orders - ADITI GOMEZ MANAGEMENT CONSULTANT [facility] Chest (10/07/24 10:12) Ketorolac Trometh 15mg/Ml Vial (Toradol (10/07/24 10:45) Vital Signs 5/19/25 09:40 Temp 97.4 Pulse 73 Resp 18 B/P (MAP) 108/47 Pulse Ox 87 Medical Decision Making Findings This patient does not present with any acute rib fractures per my interpretation of the x-ray nor is there any signs of pulmonary infiltrate opacification or concerns for pneumonia. I explained to the patient this is likely due to a contusion or rib injury which is contributing to his pain with inspiration gave him a shot of Toradol and advised him to follow up in the outpatient setting as he does not present in any acute distress or which would require further evaluation Differential Dx:Considerations: Include: Chest wall contusion, Flail chest, Myocardial contusion, Pneumothorax, Pulmonary contusion, Rib fracture, Renal contusion, Splenic fracture, Tension pneumothorax, Other Departure Disposition: 01 HOME / SELF CARE / HOMELESS Impression: Primary Impression: Rib pain Condition: Stable Discharge Instructions: Rib Contusion Referrals: NO PRIMARY CARE PROVIDER (PCP) Signature Scribe Signature: g Attestation: The note accurately reflects work and decisions made by me.Aditi Sy NP 10/07/24 18:00 ADITI GOMEZ NP October 07, 2024 09:54
--- NOTE | 2024-10-07 10:27 | RADIOLOGY REPORT ---
DI KARLA RIBS WITH PA CHEST, HISTORY: cough COMPARISON: None None TECHNICAL DATA: 1 view of the chest was obtained. 4 views of the ribs. FINDINGS: Lines and tubes: None Cardiomediastinal silhouette: normal Pulmonary vasculature: normal Lung expansion: normal Lung airspace: normal Lung interstitium: normal Pleura: normal Pneumothorax: no Bones: Unremarkable Other: no IMPRESSION: No acute intrathoracic abnormality. No rib fracture is seen.
[2024-10-07] MEDS ORDERED: ketorolac trometh 15mg/ml vial 15 MG/ML ML IM ONE (10:45)
== END 2024-10-07 11:12 | disposition left against medical advice (07) ==
LOC: ER 09:31
DX: R07.81 Pleurodynia (principal); I25.10 Atherosclerotic heart disease of native coronary artery without angina pectoris; J44.9 Chronic obstructive pulmonary disease, unspecified; M19.90 Unspecified osteoarthritis, unspecified site; N18.9 Chronic kidney disease, unspecified; F41.9 Anxiety disorder, unspecified; F32.A Depression, unspecified; F12.90 Cannabis use, unspecified, uncomplicated; F15.90 Other stimulant use, unspecified, uncomplicated; F11.90 Opioid use, unspecified, uncomplicated; F10.10 Alcohol abuse, uncomplicated; Z56.0 Unemployment, unspecified; Z98.890 Other specified postprocedural states; Z88.2 Allergy status to sulfonamides; Z88.5 Allergy status to narcotic agent; Z59.00 Homelessness unspecified; Y90.9 Presence of alcohol in blood, level not specified
CPT/HCPCS: 71111; 99284

== ENCOUNTER 2024-12-05 19:21 | Emergency (ER) | payer MEDICAID ==
[~2024-12-05] VITALS: Ht 167.6 cm; Wt 58.5 kg
[2024-12-05 19:24] VITALS: TEMP 96.8
--- NOTE | 2024-12-05 19:32 | ELECTROCARDIOGRAPH REPORT ---
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
[2024-12-05 20:15] LABS: MEAN PLATELET VOLUME 7.2 FL (7.4-10.4); RED CELL DISTRIBUTION WIDTH 13.0 % (11.5-14.5)
--- NOTE | 2024-12-05 20:18 | Physician Documentation ---
History of Present Illness ~ Chief Complaint: Shortness of Breath Stated Complaint: DIFFICULTY BREATHING/CP Time Seen by MD: 19:50 Primary Medical Doctor: Alvin Shaw Source: patient Mode of Arrival: POV Exam Limitations: no limitations HPI Chief Complaint: Multiple complaints including shortness of breath and chest pain Caveat: None Independent Historians: None History of Present Illness: Patient is a 64-year-old man who comes in complaining of intermittent sharp chest pain that began yesterday and today. Patient has been having shortness a breath for several days. He has not had a nonproductive cough. No fever. Patient came in today actually because he was feeling short of breath when walking. Patient feels fatigued. Patient also complains of abdominal pain and nausea that has been occurring for several days. Patient states that he relapsed with alcohol and methamphetamine three and four days ago. Patient denies any alleviating or exacerbating factors. Patient is currently not having any chest pain. Review of systems: All systems were reviewed and are negative except for what is indicated in the history of present illness. Past Medical History: Coronary Artery Disease, Vascular Disease, COPD, Diverticulitis, Hepatitis C, Chronic Kidney Disease, UTI, Arthritis, Chronic Pain, Chronic Back Pain, Anxiety, Depression Past Surgical History: Orthopedic surgeries Social History: Methamphetamine use, alcohol use, marijuana use Medications: Reviewed as documented Nursing Notes Allergies: Reviewed as documented in Nursing Notes Medication Reconciliation Allergies: Coded Allergies: codeine (Verified Allergy, Intermediate, RASH, 10/07/24) Sulfa (Sulfonamide Antibiotics) (Verified Allergy, Unknown, 10/07/24) acetaminophen (Verified Allergy, Unknown, 10/07/24) Scheduled Penicillin V Potassium* (Penicillin VK*), 500 MG PO Q6H Miscellaneous Medications Home Med List (No Home Medications), (Reported) Past Medical History Past Medical History: Coronary Artery Disease, Vascular Disease, COPD, Diverticulitis, Hepatitis C, Chronic Kidney Disease, UTI, Arthritis, Chronic Pain, Chronic Back Pain, Anxiety, Depression Past Surgical History: orthopedic surgeries, tonsillectomy Patient History: (COPD) Chronic obstructive lung disease MOTHER Alcohol Use: Abuse Drug Use: marijuana, methamphetamine, heroin Lives with: Spouse Lives In: Homeless Occupation: unemployed Review of Systems All Other Systems at this time: Reviewed and Negative ROS Patient denies any other acute symptoms other than above. All other systems are negative Physical Exam Vital Signs: RN Vital Signs have been reviewed: Yes, Temperature: 96.8, Source: Temporal, Heart Rate: 107, Respiratory Rate: 17, BP: 123/87, Pulse Oximetry: 94, Weight: 58.500 Pulse Oximetry Reflects: adequate oxygenation Physical Exam General Appearance: No distress HEENT: Normal OP, moist oral mucosa, PERRL, EOMI Neck: supple, normal ROM, trachea midline Pulmonary: No respiratory distress, CTA, BS equal Cardiac: RRR, no murmur, rub or gallop, GI: nondistended, soft, nontender, normal bowel sounds, no guarding, no rebound Extremities: normal ROM, no swelling, non-tender Skin: intact, dry, warm, no rashes Neuro: AAOx3, speech is clear, no focal motor weakness Psych: normal affect, good eye contact, no apparent hallucination, normal speech Progress Results/Orders Results/Orders Orders - IDALIA AGUERO MD Chest,Single View (12/05/24 20:12) Monitor (12/05/24 19:27) Saline Lock (12/05/24 19:27) Oxygen (12/05/24 19:27) Hs Troponin I W Calculations (12/05/24 22:27) Completed Orders - IDALIA AGUERO MD Chest,Single View (12/05/24 20:12) Cbc/Diff (12/05/24 19:27) BMP (12/05/24 19:27) PBNP (12/05/24 19:27) Electrocardiogram (12/05/24 19:27) Hs Troponin I W Calculations (12/05/24 19:27) Hs Troponin I W Calculations (12/05/24 21:27) Normal Saline 500ml Iv Soln (Sodium Chlo (12/05/24 22:25) Medications Received in ER Medications (Trade) Dose Ordered Sig/Tiara Route PRN Reason Start Time Stop Time Status Last Admin Dose Admin Sodium Chloride 500 ml @ 1,000 mls/hr ONCE ONCE IV 12/05/24 22:25 12/05/24 22:54 DC 12/05/24 22:54 1,000 MLS/HR Vital Signs 12/05/24 12/05/24 12/05/24 12/05/24 19:24 20:32 20:35 21:14 Temp 96.8 Pulse 107 68 62 Resp 17 12 12 B/P (MAP) 123/87 99/68 (78) 108/72 (84) Pulse Ox 94 99 99 O2 Flow Rate 0 12/05/24 12/05/24 23:54 23:54 Pulse 70 Resp 16 B/P (MAP) 120/74 (89) Pulse Ox 98 Laboratory Tests Test 12/05/24 20:06 12/05/24 22:21 White Blood Count 7.9 Red Blood Count 4.36 L Hemoglobin 13.7 L Hematocrit 38.7 L Mean Corpuscular Volume 88.8 Mean Corpuscular Hemoglobin 31.5 H Mean Corpuscular Hemoglobin Concent 35.5 Red Cell Distribution Width 13.0 Platelet Count 333 Mean Platelet Volume 7.2 L Neutrophils (%) (Auto) 53.9 Lymphocytes (%) (Auto) 34.3 Monocytes (%) (Auto) 8.3 Eosinophils (%) (Auto) 2.6 Basophils (%) (Auto) 0.9 Neutrophils # (Auto) 4.2 Lymphocytes # (Auto) 2.7 Monocytes # (Auto) 0.7 Eosinophils # (Auto) 0.2 Basophils # (Auto) 0.1 CBC Comment Sodium Level 135 Potassium Level 3.7 Chloride Level 103 Carbon Dioxide Level 24.6 Anion Gap 7 L Blood Urea Nitrogen 18 Creatinine 0.82 Estimated GFR/1.73 m2 > 90 BUN/Creatinine Ratio 22.0 H Glucose Level 116 H Calcium Level 8.4 L Troponin I High Sensitivity 13 15 Pro-B-Type Natriuretic Peptide 172 H Albumin 3.5 Chemistry Comments Troponin I High Sens Percent Delta 15 Troponin I Hi Sens Absolute Change 2 Medical Decision Making Findings Differential diagnosis includes but is not limited to: Acute coronary syndrome, pulmonary embolus, acute congestive heart failure, acute COPD exacerbation, methamphetamine abuse, pneumothorax, pericarditis, pleurisy EKG independent interpretation: Performed at 7:30 p.m.. Normal sinus rhythm, heart rate 85, normal axis, normal ST segments Chest x-ray, single view, indication: Chest pain, shortness a breath Independent interpretation: Lungs are clear, normal mediastinum, normal cardiac silhouette, no pneumothorax. No acute cardiopulmonary process Laboratory data independent interpretation: CBC: Unremarkable CMP: Unremarkable Troponin: 13 ProBNP: 172 Emergency department course/medical decision-making: Patient presents with a multitude of symptoms. Patient is currently not having chest pain. Patient's EKGs normal. Troponin is negative. Patient's chest x- ray is unremarkable. Patient isn't having any wheezing or other findings concerning for a COPD exacerbation or congestive heart failure. In addition the patient does not appear to be in any respiratory distress and he has a normal pulmonary exam. In addition he is not requiring oxygen. I do not suspect acute coronary syndrome or pulmonary embolus. No medical or surgical emergency has been identified. There was no evidence of an infection or pneumonia. Patient's lab work is unremarkable. Patient is thought to be stable for discharge. He is instructed to follow up with the [facility] or his primary care doctor. All the above was reviewed and discussed with the patient. Patient is complaining of some left upper frontal dental pain. Patient has very poor dentition. Patient states that he has had this pain for some time and has been getting worse. He believes he has an infection. Patient has dental decay down to the gumline. Patient will be started on pen VK. He is instructed to follow up with a dentist. Patient is stable for discharge. Departure Time of Disposition: 22:09 Disposition: HOME / SELF CARE / HOMELESS Impression: Primary Impression: Chest pain of unknown etiology Additional Impressions: Dyspnea Qualified Codes: R06.09 - Other forms of dyspnea Dental infection Tobacco use Condition: Stable Discharge Instructions: Dental Caries, Adult, [id number], Methamphetamines Use Disorder, Nonspecific Chest Pain, Adult, [id number] Additional Instructions: FOLLOW UP WITH YOUR PRIMARY CARE DOCTOR FOLLOW UP WITH A DENTIST Prescriptions Penicillin V Potassium* (Penicillin VK*) 500 Mg Tablet 500 MG PO Q6H, #40 TAB Prov: IDALIA AGUERO MD 12/05/24 Education Educated: Patient Educated regarding: diagnosis, treatment Signature Scribe Signature: No scribe Attestation: No scribe IDALIA AGUERO MD Dec 05, 2024 20:18
--- NOTE | 2024-12-05 20:30 | RADIOLOGY REPORT ---
EXAM: DI CHEST,SINGLE VIEW TECHNIQUE: Single frontal chest radiograph CLINICAL HISTORY: CP COMPARISON: DI CHEST,SINGLE VIEW on DOS: 02/03/23 Findings/Impression: Frontal chest radiograph demonstrates no acute osseous or superficial soft tissue abnormalities. The trachea is midline. The cardiac silhouette and mediastinum are within normal limits. No pneumothorax, pleural effusions, or consolidations.
[2024-12-05 20:37] LABS: CREATININE 0.82 MG/DL (0.60-1.10); PRO BRAIN NATRIURETIC PEPTIDE 172 PG/ML (0-125); TOTAL CARBON DIOXIDE 24.6 MMOL/L (24-32); eCRCL 77 ML/MIN; eGFR > 90 ML/MIN
[2024-12-05] MEDS: normal saline 500ml IV soln 500 ML IV ONE (22:54)
[2024-12-05] MEDS ORDERED: PENI500T2 PO (23:49)
[2024-12-06 00:16] VITALS: BP 116/75; PULSE 58; RESP 18; O2SAT 94
== END 2024-12-06 00:21 | disposition home or self-care (01) ==
LOC: ER 19:21
DX: R07.9 Chest pain, unspecified (principal); R06.02 Shortness of breath; F12.90 Cannabis use, unspecified, uncomplicated; I25.10 Atherosclerotic heart disease of native coronary artery without angina pectoris; J44.9 Chronic obstructive pulmonary disease, unspecified; F41.9 Anxiety disorder, unspecified; F32.A Depression, unspecified; F10.10 Alcohol abuse, uncomplicated; M19.90 Unspecified osteoarthritis, unspecified site; Z88.5 Allergy status to narcotic agent; Z88.2 Allergy status to sulfonamides; Z59.00 Homelessness unspecified; K04.7 Periapical abscess without sinus; Z56.0 Unemployment, unspecified; Y90.9 Presence of alcohol in blood, level not specified
CPT/HCPCS: 36415; 71045; 80048; 83880; 84484; 85025; 93005; 96360; 99285; J7040

== ENCOUNTER 2024-12-09 16:14 | Emergency (ER) | payer MEDICAID ==
[~2024-12-09] VITALS: Ht 167.6 cm; Wt 67.8 kg
[~2024-12-09 16:14] MED LIST changes: +PENI500T2 PO
[2024-12-09 17:11] LABS: LEUKOCYTE ESTERASE ,URINE TRACE (Neg); NITRITES, URINE NEGATIVE (Neg); OCCULT BLOOD,URINE NEGATIVE (Neg)
[2024-12-09 17:15] LABS: UA COLLECTION TYPE CLN CATCH MIDSTREAM
[2024-12-09 17:17] LABS: SQUAMOUS EPITHELIAL CELL,UR FEW /LPF (FEW)
[2024-12-09 17:19] LABS: URINE AMPHETAMINE SCREEN NEGATIVE (Neg); URINE BARBITUATE SCREEN NEGATIVE (Neg); URINE BENZODIAZEPINES SCREEN NEGATIVE (Neg); URINE CANNABINOID SCREEN POSITIVE (Neg); URINE COCAINE SCREEN NEGATIVE (Neg); URINE METHADONE SCREEN NEGATIVE (Neg); URINE OPIATE SCREEN NEGATIVE (Neg); URINE PHENCYCLIDINE SCREEN NEGATIVE (Neg)
[2024-12-09 17:51] LABS: MEAN PLATELET VOLUME 8.2 FL (7.4-10.4); RED CELL DISTRIBUTION WIDTH 12.8 % (11.5-14.5)
[2024-12-09 18:15] LABS: CREATININE 0.74 MG/DL (0.60-1.10); TOTAL CARBON DIOXIDE 23.3 MMOL/L (24-32); eCRCL 93 ML/MIN; eGFR > 90 ML/MIN
[2024-12-09 18:26] LABS: ETHANOL < 10 MG/DL (<10)
--- NOTE | 2024-12-09 19:59 | Physician Documentation ---
History of Present Illness ~ Chief Complaint: 5150 Stated Complaint: "5150 HOLD" Time Seen by MD: 17:25 Primary Medical Doctor: Alvin Shaw [facility] Patient is seen today with complaints of suicidal ideation. Patient states he was brought in from [place] and was 5150 at that point after making statements of wanting to slit his wrists and/or slit his throat and kill himself. Patient does admit to previous suicide attempts. Patient states he does not want to be alive anymore due to physical and mental anguish. Patient denies any current chest pain or shortness of breath or abdominal pain or nausea, vomiting, diarrhea. Patient has no other concern or complaint at this time. States he has previously had Zyprexa. Patient also admits to voices inside his head but refuses to discuss what they are telling him. Medication Reconciliation Allergies: Coded Allergies: codeine (Verified Allergy, Intermediate, RASH, 12/09/24) Sulfa (Sulfonamide Antibiotics) (Verified Allergy, Unknown, 12/09/24) acetaminophen (Verified Allergy, Unknown, 12/09/24) Miscellaneous Medications Home Med List (No Home Medications), (Reported) Discontinued Medications Penicillin V Potassium* (Penicillin VK*), 500 MG PO Q6H Discontinued Reason: patient no longer taking Past Medical History Past Medical History: Coronary Artery Disease, Vascular Disease, COPD, Diverticulitis, Hepatitis C, Chronic Kidney Disease, UTI, Arthritis, Chronic Pain, Chronic Back Pain, Anxiety, Depression Past Surgical History: orthopedic surgeries, tonsillectomy Patient History: (COPD) Chronic obstructive lung disease MOTHER Alcohol Use: Abuse Drug Use: marijuana, methamphetamine, heroin Lives with: Spouse Lives In: Homeless Occupation: unemployed Review of Systems Constitutional: Denies: chills, fever, weakness Eyes: Denies: pain, blurred vision ENT: Denies: ear pain, nose pain, throat pain, mouth pain Respiratory: Denies: cough, shortness of breath Cardiovascular: Denies: chest pain, palpitations Gastrointestinal: Denies: abdominal pain, nausea, vomiting Genitourinary: Denies: burning, dysuria Male Genitalia: Denies: penile discharge, testicular pain Neurological: Denies: headache, dizziness Musculoskeletal: Denies: pain, swelling Integumentary: Denies: rash, lesions Allergic/Immunologic: Denies: hives, itching Hematologic/Lymphatic: Denies: no symptoms reported Psychiatric: Denies: depression, anxiety Physical Exam Vital Signs: Temperature: 98.1, Source: Temporal, Heart Rate: 89, Respiratory Rate: 16, BP: 144/84, Pulse Oximetry: 98, Weight: 67.750 Oxygen Flow Rate: 0 Physical Exam General: Awake and Alert, no acute distress. HEENT: Conjunctiva pink, Sclera clear, Mucus Membranes moist. Neck: Supple without masses and tenderness. Resp: Unlabored. Lungs clear to auscultation bilaterally. Heart: Regular Rate and rhythm, normal S1 and S2 without murmur, rub or gallop. Abdomen: Soft and non tender no organomegaly Extremities: No cyanosis,clubbing or edema. Skin: Warm and Dry. Progress Results/Orders Results/Orders Orders - DUANE KAUR PAC Urinalysis, Cult If Indicated (12/09/24 19:51) Completed Orders - DUANE KAUR Olanzapine Tablet (Zyprexa Tablet) (12/09/24 19:29) Cephalexin Capsule (Keflex Capsule) (12/09/24 19:46) Vital Signs 12/09/24 12/09/24 16:21 17:44 Temp 98.1 Pulse 89 Resp 18 16 B/P (MAP) 144/84 Pulse Ox 98 O2 Flow Rate 0 Laboratory Tests Test 12/09/24 16:26 12/09/24 16:39 White Blood Count 8.9 Red Blood Count 4.41 L Hemoglobin 13.7 L Hematocrit 39.0 L Mean Corpuscular Volume 88.3 Mean Corpuscular Hemoglobin 31.1 H Mean Corpuscular Hemoglobin Concent 35.2 Red Cell Distribution Width 12.8 Platelet Count 328 Mean Platelet Volume 8.2 Neutrophils (%) (Auto) 60.4 Lymphocytes (%) (Auto) 28.3 Monocytes (%) (Auto) 8.2 Eosinophils (%) (Auto) 2.1 Basophils (%) (Auto) 1.0 Neutrophils # (Auto) 5.4 Lymphocytes # (Auto) 2.5 Monocytes # (Auto) 0.7 Eosinophils # (Auto) 0.2 Basophils # (Auto) 0.1 CBC Comment Sodium Level 134 L Potassium Level 3.7 Chloride Level 102 Carbon Dioxide Level 23.3 L Anion Gap 9 Blood Urea Nitrogen 19 H Creatinine 0.74 Estimated GFR/1.73 m2 > 90 BUN/Creatinine Ratio 25.7 H Glucose Level 106 H Calcium Level 8.5 Albumin 3.5 Thyroid Stimulating Hormone (TSH) 1.70 Chemistry Comments Ethyl Alcohol Level < 10 Urine Specimen Description Cln catch midstream Urine Color Yellow Urine Clarity Clear Urine pH 6.0 Urine Specific [place] 1.025 Urine Protein Negative Urine Glucose (UA) 100 H Urine Ketones Negative Urine Occult Blood Negative Urine Nitrite Negative Urine Bilirubin Negative Urine Urobilinogen 0.2 Urine Leukocyte Esterase Trace H Urine RBC 0-2 Urine WBC 20-30 H Urine Squamous Epithelial Cells Few Urine Transitional Epithelial Cells Few Urine Bacteria Few Volume Urine Centrifuged 10 ml Urine Comment Urine Opiates Screen Negative Urine Methadone Screen Negative Urine Fentanyl Screen Negative Urine Barbiturates Screen Negative Urine Phencyclidine Screen Negative Urine Amphetamines Screen Negative Urine Benzodiazepines Screen Negative Urine Cocaine Screen Negative Urine Cannabinoids Screen Positive Drug Screen Comment SARS-CoV-2 Antigen (Rapid) Negative Medical Decision Making Findings Patient is seen today with complaints of suicidal ideation. Patient states he was brought in from [place] and was 5150 at that point after making statements of wanting to slit his wrists and/or slit his throat and kill himself. Patient does admit to previous suicide attempts. Patient states he does not want to be alive anymore due to physical and mental anguish. Patient denies any current chest pain or shortness of breath or abdominal pain or nausea, vomiting, diarrhea. Patient has no other concern or complaint at this time. States he has previously had Zyprexa. Patient also admits to voices inside his head but refuses to discuss what they are telling him. Patient is medically cleared for mental health eval. Patient did have sign of UTI on urinalysis and was started on Keflex. Departure Disposition: 30 STILL A PATIENT Impression: Primary Impression: Suicidal ideation Additional Impression: Psychosis Qualified Codes: F29 - Unspecified psychosis not due to a substance or known physiological condition Condition: Stable Discharge Instructions: Suicidal Feelings: How to Help Yourself Additional Instructions: Transfer orders for [facility]: At this time there is no evidence of an emergent medical condition that would preclude (admission/transfer) to a psychiatric unit via [facility] protocol for further psychiatric, as well as medical evaluation and treatment. At this time I have no reason to believe that transfer via [facility] protocol would have serious medical compromise in the patient's health. Patient is medically cleared for mental health eval. Patient did have sign of UTI on urinalysis and was started on Keflex. Referrals: NO PRIMARY CARE PROVIDER (PCP) Signature Scribe Signature: No scribe Attestation: No scribe DUANE KAUR PAC Dec 09, 2024 19:59
[2024-12-09 22:18] LABS: UA COLLECTION TYPE CLN CATCH MIDSTREAM
[2024-12-09 22:19] LABS: LEUKOCYTE ESTERASE ,URINE SMALL (Neg); NITRITES, URINE NEGATIVE (Neg); OCCULT BLOOD,URINE NEGATIVE (Neg)
[2024-12-09 22:26] LABS: SQUAMOUS EPITHELIAL CELL,UR FEW /LPF (FEW)
[2024-12-10 20:22] LABS: CREATININE 0.89 MG/DL (0.60-1.10); TOTAL CARBON DIOXIDE 25.5 MMOL/L (24-32); eCRCL 78 ML/MIN; eGFR 87 ML/MIN
[2024-12-11] MEDS: penicillin V potassium 500mg tablet PO SCH (15:07)
[2024-12-13 05:41] VITALS: BP 122/79; PULSE 68; TEMP 97.5; O2SAT 98
[2024-12-13 08:03] VITALS: RESP 16
== END 2024-12-13 12:15 ==
LOC: ER 16:15
DX: R45.851 Suicidal ideations (principal); F29 Unspecified psychosis not due to a substance or known physiological condition; J44.9 Chronic obstructive pulmonary disease, unspecified; F41.9 Anxiety disorder, unspecified; F32.A Depression, unspecified; Z56.0 Unemployment, unspecified; F10.10 Alcohol abuse, uncomplicated; F12.90 Cannabis use, unspecified, uncomplicated; F15.90 Other stimulant use, unspecified, uncomplicated; F11.90 Opioid use, unspecified, uncomplicated; I25.10 Atherosclerotic heart disease of native coronary artery without angina pectoris; M19.90 Unspecified osteoarthritis, unspecified site; N18.9 Chronic kidney disease, unspecified; Z88.2 Allergy status to sulfonamides; Z88.5 Allergy status to narcotic agent; Z59.00 Homelessness unspecified; Y90.9 Presence of alcohol in blood, level not specified; Z20.822 Contact with and (suspected) exposure to COVID-19; Z79.899 Other long term (current) drug therapy
CPT/HCPCS: 36415; 80048; 80053; 80305; 80320; 81001; 84443; 85025; 87088; 87811; 99285

== ENCOUNTER 2024-12-21 10:52 | Emergency (ER) | payer MEDICAID ==
[~2024-12-21] VITALS: Ht 175.3 cm; Wt 85.0 kg
[~2024-12-21 10:52] MED LIST changes: -PENI500T2 PO
[2024-12-21 10:57] VITALS: TEMP 98.5
--- NOTE | 2024-12-21 11:06 | ELECTROCARDIOGRAPH REPORT ---
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 Santy Rees Measurements Intervals [place] Rate: 115 P: 75 [place]: 119 QRS: 59 QRSD: 75 T: 56 QT: 301 QTc: 417 Interpretive Statements Sinus tachycardia Probable left atrial enlargement Electronically Signed On 12-21-2024 18:25:[address] Santy Rees Please click the below link to view image of tracing.
--- NOTE | 2024-12-21 11:47 | Physician Documentation ---
History of Present Illness ~ Chief Complaint: Palpitations Stated Complaint: MED REACTION Time Seen by MD: 11:25 Primary Medical Doctor: Alvin Shaw Mode of Arrival: Ambulatory HPI This is a 64-year-old gentleman who was recently started on Wellbutrin and subsequently discontinued it on 12/14/2024, comes in because he is experiencing every single side-effect off Wellbutrin that is listed with a pamphlet. He complains of palpitations, burning skin, abdominal cramps, bilateral lower extremity weakness. No particular palliating or aggravating factors. Did not attempt to treat his symptoms. This has not happened in the past. It is important to note that the patient is a poor historian. He denies any headache, chest pain, difficulty breathing. Denies concerns for tobacco, alcohol or illicit substances. Medication Reconciliation Allergies: Coded Allergies: codeine (Verified Allergy, Intermediate, RASH, 12/09/24) Sulfa (Sulfonamide Antibiotics) (Verified Allergy, Unknown, 12/09/24) acetaminophen (Verified Allergy, Unknown, 12/09/24) Miscellaneous Medications Home Med List (No Home Medications), (Reported) Past Medical History Past Medical History: Coronary Artery Disease, Vascular Disease, COPD, Diverticulitis, Hepatitis C, Chronic Kidney Disease, UTI, Arthritis, Chronic Pain, Chronic Back Pain, Anxiety, Depression Past Surgical History: orthopedic surgeries, tonsillectomy Patient History: (COPD) Chronic obstructive lung disease MOTHER Alcohol Use: Abuse Drug Use: marijuana, methamphetamine, heroin Lives with: Spouse Lives In: Homeless Occupation: unemployed Review of Systems ROS 10 point review of systems was performed and unless noted above in HPI is negat marion for acute process/complaint. Physical Exam Vital Signs: Temperature: 98.5, Source: Temporal, Heart Rate: 114, Respiratory Rate: 16, BP: 123/80, Pulse Oximetry: 99, Weight: 85.000 Oxygen Flow Rate: 0 Physical Exam GENERAL: Awake, alert, oriented, GCS 15, no apparent distress, non-toxic appearing, answers questions, follows commands appropriately. Examined in bed 13. HEENT: Atraumatic, normocephalic, pupils equal, extraocular muscles intact, sclerae anicteric, mucus membranes moist, oropharynx is clear, no stridor. NECK: supple, full active range of motion, trachea midline, no thyromegaly, no lymphadenopathy, no JVD. CARDIOVASCULAR: Tachycardic and regular rate/rhythm, no murmurs/gallops/rubs, Pulses are 2+ in all extremities and symmetric. Capillary refill less than 2 seconds. PULMONARY: Nonlabored, good air movement ,no respiratory distress, speaking in full sentences, clear to auscultation bilaterally, no wheezing, no ronchi, no rales, no accessory muscle use. GASTROINTESTINAL: Soft, non-tender, non-distended, normal active bowel sounds, no organomegaly, no pulsatile masses, no CVA tenderness. NEUROLOGIC: Lucid with normal mental status. Normal facial symmetry. Moves all extremities symmetrically and with purpose. No truncal ataxia. Speech is fluid without evidence of dysarthria or aphasia, no focal deficits appreciated. MUSCULOSKELETAL: There is full range of motion of all extremities. There is no joint pain or joint swelling or joint erythema. There is no muscle pain or tenderness or swelling. EXTREMITIES: warm, well-perfused, no cyanosis, no clubbing, no edema, no acute deformities. Skin: warm, dry, no rashes or lesions, no jaundice, no petechiae orpurpura. No ecchymosis. PSYCHIATRIC: Normal affect, normal insight, normal concentration. Focused exam: [No guarding or rebound] Progress Results/Orders Results/Orders Orders - JERONIMO MONTEJO DO Chest,Single View (12/21/24 11:45) Monitor (12/21/24 11:45) Saline Lock (12/21/24 11:45) Cult Urine + [address] (12/21/24 15:21) Completed Orders - JERONIMO MONTEJO DO Electrocardiogram (12/21/24 ) Cbc/Diff (12/21/24 11:45) CK (12/21/24 11:45) ESR (12/21/24 11:45) Lipase (12/21/24 11:45) C-Reactive Protein (12/21/24 11:45) PHOS (12/21/24 11:45) Pt Inr (12/21/24 11:45) PTT (12/21/24 11:45) Chest,Single View (12/21/24 11:45) PBNP (12/21/24 11:45) MG (12/21/24 11:45) TSH (12/21/24 11:45) Free T4 (12/21/24 11:45) Normal Saline 1000ml (0.9% Sodium Chlori (12/21/24 11:45) Hs Troponin I W Calculations (12/21/24 13:45) Drug Screen, Urine (12/21/24 11:45) Ethanol (12/21/24 11:45) CMP (12/21/24 11:45) Hs Troponin I W Calculations (12/21/24 11:45) Ua W/Microscopic, Cult If Ind (12/21/24 14:55) Medications Received in ER Medications (Trade) Dose Ordered Sig/Tiara Route PRN Reason Start Time Stop Time Status Last Admin Dose Admin (0.9% sodium chloride (NS) 1000ml IV soln) 1,000 ml ONCE ONCE IVB 12/21/24 11:45 12/21/24 11:48 DC 12/21/24 12:34 1,000 ML Vital Signs 12/21/24 12/21/24 12/21/24 12/21/24 10:57 11:32 11:41 12:45 Temp 98.5 Pulse 114 95 Resp 18 16 16 16 B/P (MAP) 148/73 123/80 (94) 114/57 (76) Pulse Ox 99 98 O2 Flow Rate 0 12/21/24 12/21/24 13:11 15:21 Pulse 87 92 Resp 15 14 B/P (MAP) 125/74 (91) 129/78 (95) Pulse Ox 98 95 Laboratory Tests Test 12/21/24 12:03 12/21/24 14:05 12/21/24 14:55 White Blood Count 7.7 Red Blood Count 4.39 L Hemoglobin 13.8 L Hematocrit 38.8 L Mean Corpuscular Volume 88.3 Mean Corpuscular Hemoglobin 31.4 H Mean Corpuscular Hemoglobin Concent 35.6 Red Cell Distribution Width 13.4 Platelet Count 331 Mean Platelet Volume 7.4 Neutrophils (%) (Auto) 62.6 Lymphocytes (%) (Auto) 24.5 Monocytes (%) (Auto) 9.4 Eosinophils (%) (Auto) 2.7 Basophils (%) (Auto) 0.8 Neutrophils # (Auto) 4.8 Lymphocytes # (Auto) 1.9 Monocytes # (Auto) 0.7 Eosinophils # (Auto) 0.2 Basophils # (Auto) 0.1 CBC Comment Erythrocyte Sedimentation Rate 7 Prothrombin Time 9.8 INR International Normalized Ratio 1.0 Activated Partial Thromboplast Time 26 Coagulation Comments Sodium Level 133 L Potassium Level 4.2 Chloride Level 101 Carbon Dioxide Level 25.4 Anion Gap 7 L Blood Urea Nitrogen 19 H Creatinine 0.94 Estimated GFR/1.73 m2 81 BUN/Creatinine Ratio 20.2 H Glucose Level 167 H Calcium Level 8.9 Phosphorus Level 4.2 Magnesium Level 2.1 Total Bilirubin 0.5 Aspartate Amino Transf (AST/SGOT) 24 Alanine Aminotransferase (ALT/SGPT) 50 Alkaline Phosphatase 77 Total Creatine Kinase 170 Troponin I High Sensitivity 18 15 C-Reactive Protein 0.15 Pro-B-Type Natriuretic Peptide 141 H Total Protein 7.6 Albumin 3.8 Globulin 3.8 Albumin/Globulin Ratio 1.0 L Lipase 20 Thyroid Stimulating Hormone (TSH) 1.18 Free Thyroxine 1.01 Chemistry Comments Ethyl Alcohol Level < 10 Troponin I High Sens Percent Delta 16 Troponin I Hi Sens Absolute Change -3 Urine Specimen Description Non-specified Urine Color Yellow Urine Clarity Clear Urine pH 6.0 Urine Specific [place] 1.025 Urine Protein Negative Urine Glucose (UA) Negative Urine Ketones Negative Urine Occult Blood Negative Urine Nitrite Negative Urine Bilirubin Negative Urine Urobilinogen 0.2 Urine Leukocyte Esterase Small H Urine RBC None seen Urine WBC 5-10 H Urine Squamous Epithelial Cells Moderate Urine Bacteria Few Urine Mucus None seen Urine Culture Indicated Indicated Volume Urine Centrifuged 10 ml Urine Comment Urine Opiates Screen Negative Urine Methadone Screen Negative Urine Fentanyl Screen Negative Urine Barbiturates Screen Negative Urine Phencyclidine Screen Negative Urine Amphetamines Screen Positive Urine Benzodiazepines Screen Negative Urine Cocaine Screen Negative Urine Cannabinoids Screen Positive Drug Screen Comment EKG/XRAY/CT/US/VASC/MRI EKG : Additional Comment EKG was obtained and interpreted by myself shows sinus tachycardic, rate of 115, normal TN interval, narrow QRS, no QT prolongation, normal axis, no STEMI Medical Decision Making Findings Facility Status: ED Holds, [facility] process The plan was discussed with the patient, who demonstrates clear understanding of the plan and is in agreement with the plan unless otherwise noted in the chart. All questions have been answered, all concerns were addressed unless otherwise documented. I was available throughout their ED stay for frequent reassessment and questions. Differential Diagnoses (considered and possible or likely): [Medication reaction, palpitation secondary to dehydration, electrolyte derangement, sinus tachycardia, drug toxidrome, alcohol withdrawal, alcohol intoxication, less likely AFib/a flutter, unlikely malignant arrhythmia. Additionally considered possibly seeking secondary gain or diagnosed/undiagnosed psychiatric disease] ??Differential Diagnoses (considered and unlikely, not requiring evaluation currently): [No evidence of lateralizing sinuses suspect a stroke] MDM Data Please see HPI for the following: Independent Historians and external Records Review. Historian: [Patient] Independent Historians: ?[Record review] Medication Management: [Reviewed medication list] Social History and determinants: [Reviewed] Please see the body of the note for the following: Any independent interpretations of ECG, imaging studies. All vitals signs/haemodynamics, ordered tests were independently reviewed and interpreted by myself. Nursing triage complaint and vitals reviewed, additional nursing notes were reviewed as available and I agree unless otherwise noted or documented in contradiction in the chart Vital Signs: Independently reviewed Labs: Independently interpreted Imaging: Independently interpreted Old Medical Records: Independently reviewed, see HPI for relevant summary and information Pulse Oximetry: [96%] interpreted as [normal on room air] by me [[employer] Supervisor: Tachycardic Rate, Regular rhythm, no ectopy, sinus tachycardia. reviewed and interpreted by me] Additionally notably showing: [Hemodynamics reviewed. The patient is not febrile, initially tachycardic which had resolved with rest alone, no evidence of hypotension or hypoxia. Laboratory studies reviewed. CBC is normal. Metabolic panel notable for mild dehydration. Thyroid studies are normal. Lipase is normal. Troponin is twice negative. UA was obtained and it is questionably positive for UTI, however he has not no symptoms. We will await results of culture. Toxicology is shockingly positive for amphetamines. Chest x-ray is unremarkable.] Tests considered but not ordered include: [Advanced imaging has been considerably but does not appear to be necessary] Social Determinants of Health Impact: Patient was evaluated in [facility], or [facility] [place] with [place] access to healthcare due to below par ratio of patient to medical providers. [] Comorbid Conditions Impacting Present Evaluation and Care/Treatment: [Methamphetamine abuse] Management Discussions with other Healthcare Providers: [None] Treatment and Disposition Medication Management (Given or considered): []. See EMR for details Consideration for Hospitalization/Escalation/Deescalation of Care: Admission for observation has been considered, [however the patient is able to tolerate p.o., their symptoms are controlled, they are able to rely on oral medications, and their chief complaint/diagnosis can be managed on outpatient basis.] ?ED Course:?[No clinical deterioration.] ?Shared decision making:?[Patient is hemodynamically stable for discharge home with follow with their primary care provider. [ ] Specific and cautious return precautions provided and discussed with full understanding. Any incidental findings were also discussed and follow up recommendations given. [] All questions answered. Patient/family were able to verbalize back return precautions. Patient/family agree to plan. Copies of imaging and laboratory studies were provided.] Code status:?FULL Please see the full Electronic Medical Record for full details of nursing documentation, medications list, other records of complete past medical history and conditions, vital signs, laboratory studies, and any radiologic study int erpretations by radiologists. Portions of this note were completed using Press[employer] dictation software and as a result there may exist minor errors in spelling. I have reviewed elements of past family and social history and agree as included in note. Departure Disposition: 01 HOME / SELF CARE / HOMELESS Impression: Primary Impression: Palpitations Additional Impressions: Generalized weakness Methamphetamine use Condition: Improved Discharge Instructions: Palpitations, [id number] Referrals: NO PRIMARY CARE PROVIDER (PCP) Education Educated: Patient Educated regarding: diagnosis, treatment, prognosis, need for follow up Signature Scribe Signature: No scribe Attestation: This note accurately reflects clinical decisions, work performed by myself, DO GUSTABO Hall NICHOLAS M DO Dec 21, 2024 11:47
[2024-12-21 12:11] LABS: MEAN PLATELET VOLUME 7.4 FL (7.4-10.4); RED CELL DISTRIBUTION WIDTH 13.4 % (11.5-14.5)
[2024-12-21 12:23] LABS: APTT 26 SECONDS (22-32); INR 1.0 INR
[2024-12-21 12:25] LABS: CREATININE 0.94 MG/DL (0.60-1.10); TOTAL CARBON DIOXIDE 25.4 MMOL/L (24-32); eCRCL 81 ML/MIN; eGFR 81 ML/MIN
[2024-12-21] MEDS: normal saline 1000ML IV soln IVB ONE (12:34)
[2024-12-21 12:35] LABS: ETHANOL < 10 MG/DL (<10); PHOSPHORUS 4.2 MG/DL (2.3-4.5); PRO BRAIN NATRIURETIC PEPTIDE 141 PG/ML (0-125)
--- NOTE | 2024-12-21 13:24 | RADIOLOGY REPORT ---
CHEST RADIOGRAPH Indication: Weakness Technique: Single frontal view of the chest was obtained COMPARISON: DI CHEST,SINGLE VIEW on DOS: 12/05/24, DI KARLA RIBS WITH PA CHEST on DOS: 10/07/24, DI CHEST ,SINGLE VIEW on DOS: 02/03/23 FINDINGS: Lines and Tubes: None Lungs: Clear Pleura: No effusion. No pneumothorax. Cardiomediastinal contours: Unremarkable Bones: Unremarkable IMPRESSION: No acute disease.
[2024-12-21 15:16] LABS: LEUKOCYTE ESTERASE ,URINE SMALL (Neg); NITRITES, URINE NEGATIVE (Neg); OCCULT BLOOD,URINE NEGATIVE (Neg)
[2024-12-21 15:19] LABS: UA COLLECTION TYPE NON-SPECIFIED
[2024-12-21 15:21] LABS: MUCUS STRANDS NONE SEEN /LPF (Neg); SQUAMOUS EPITHELIAL CELL,UR MODERATE /LPF (FEW)
[2024-12-21 15:31] LABS: URINE AMPHETAMINE SCREEN POSITIVE (Neg); URINE BARBITUATE SCREEN NEGATIVE (Neg); URINE BENZODIAZEPINES SCREEN NEGATIVE (Neg); URINE CANNABINOID SCREEN POSITIVE (Neg); URINE COCAINE SCREEN NEGATIVE (Neg); URINE METHADONE SCREEN NEGATIVE (Neg); URINE OPIATE SCREEN NEGATIVE (Neg); URINE PHENCYCLIDINE SCREEN NEGATIVE (Neg)
[2024-12-21 16:09] VITALS: BP 130/68; PULSE 63; RESP 16; O2SAT 95
== END 2024-12-21 16:26 | disposition home or self-care (01) ==
LOC: ER 10:53
DX: R00.2 Palpitations (principal); R53.1 Weakness; F15.90 Other stimulant use, unspecified, uncomplicated; R10.9 Unspecified abdominal pain; F32.A Depression, unspecified; F41.9 Anxiety disorder, unspecified; F12.90 Cannabis use, unspecified, uncomplicated; I25.10 Atherosclerotic heart disease of native coronary artery without angina pectoris; J44.9 Chronic obstructive pulmonary disease, unspecified; M19.90 Unspecified osteoarthritis, unspecified site; N18.9 Chronic kidney disease, unspecified; R06.02 Shortness of breath; Z59.00 Homelessness unspecified; Z87.440 Personal history of urinary (tract) infections; Z88.2 Allergy status to sulfonamides; Z88.5 Allergy status to narcotic agent; Z90.89 Acquired absence of other organs
CPT/HCPCS: 36415; 71045; 80053; 80305; 80320; 81001; 82550; 83690; 83735; 83880; 84100; 84439; 84443; 84484; 85025; 85610; 85651; 85730; 86140; 87088; 93005; 96360; 99285; J7030

== ENCOUNTER 2024-12-24 09:11 | Emergency (ER) | payer MEDICAID ==
[~2024-12-24] VITALS: Ht 167.6 cm; Wt 146.4 kg
[2024-12-24 09:18] VITALS: BP 109/89; PULSE 106; RESP 16; O2SAT 98
--- NOTE | 2024-12-24 10:54 | Physician Documentation ---
History of Present Illness Chief Complaint: Rash on hands Stated Complaint: RASH Time Seen by MD: 10:50 Primary Medical Doctor: Alvin Shaw [facility] 64-year-old male presents to the emergency department for evaluation of very small rash to the dorsal aspect of his bilateral hands. Patient reports that he believes the city are putting chemicals on the bus stops and that is causing a rash on his hands. No fever nausea vomiting cough or diarrhea at this. Medication Reconciliation Allergies: Coded Allergies: codeine (Verified Allergy, Intermediate, RASH, 12/24/24) Sulfa (Sulfonamide Antibiotics) (Verified Allergy, Unknown, 12/24/24) acetaminophen (Verified Allergy, Unknown, 12/24/24) Miscellaneous Medications Home Med List (No Home Medications), (Reported) Past Medical History Past Medical History: Coronary Artery Disease, Vascular Disease, COPD, Diverticulitis, Hepatitis C, Chronic Kidney Disease, UTI, Arthritis, Chronic Pain, Chronic Back Pain, Anxiety, Depression Past Surgical History: orthopedic surgeries, tonsillectomy Patient History: (COPD) Chronic obstructive lung disease MOTHER Alcohol Use: Abuse Drug Use: marijuana, methamphetamine, heroin Lives with: Spouse Lives In: Homeless Occupation: unemployed Review of Systems ROS As stated above in the HPI, otherwise all systems are reviewed and negative. Physical Exam Vital Signs: Temperature: 97.2, Source: Oral, Heart Rate: 106, Respiratory R ate: 16, BP: 109/89, Pulse Oximetry: 98, Weight: 146.400 Oxygen Flow Rate: 0 Physical Exam VITALS: Reviewed and as above. GENERAL: Alert, no apparent distress. MUSCULOSKELETAL No deformities, no edema SKIN: Warm and dry, mild rash to the dorsal aspect of hands bilaterally NEURO: Oriented x4, No motor or sensory deficit PSYCH: Normal mood and affect, no agitation Progress Results/Orders Results/Orders Vital Signs 12/24/24 09:18 Temp 97.2 Pulse 106 Resp 16 B/P (MAP) 109/89 Pulse Ox 98 O2 Flow Rate 0 Departure Disposition: 01 HOME / SELF CARE / HOMELESS Impression: Primary Impression: Rash Condition: Stable Additional Instructions: To your seen for evaluation of a mild rash to the dorsal aspect of your hands bilaterally. A treatment courses currently going to be applying hydrocortisone cream that you have decided to add purchased from the pharmacy. Said that you would like a prescription for this the eye we are happy to provide you with one. Follow up with her primary care provider or return to the emergency department if you have any worsening of symptoms or any additional concerning symptoms that we discussed here today. Referrals: NO PRIMARY CARE PROVIDER (PCP) Education Educated: Patient Educated regarding: treatment, need for follow up [employer] Dec 24, 2024 10:54
[2024-12-24 10:58] VITALS: TEMP 97.2
== END 2024-12-24 11:02 | disposition home or self-care (01) ==
LOC: ER 09:12
DX: R21 Rash and other nonspecific skin eruption (principal); I25.10 Atherosclerotic heart disease of native coronary artery without angina pectoris; J44.9 Chronic obstructive pulmonary disease, unspecified; M19.90 Unspecified osteoarthritis, unspecified site; F41.9 Anxiety disorder, unspecified; F32.A Depression, unspecified; F12.90 Cannabis use, unspecified, uncomplicated; F15.90 Other stimulant use, unspecified, uncomplicated; F11.90 Opioid use, unspecified, uncomplicated; F10.10 Alcohol abuse, uncomplicated; Z88.5 Allergy status to narcotic agent; Z88.2 Allergy status to sulfonamides; Z59.00 Homelessness unspecified; Y90.9 Presence of alcohol in blood, level not specified; Z56.0 Unemployment, unspecified
CPT/HCPCS: 99282

== ENCOUNTER 2025-01-30 04:19 | Emergency (ER) | payer MEDICAID ==
[~2025-01-30] VITALS: Ht 170.2 cm; Wt 65.9 kg
[2025-01-30 04:33] VITALS: BP 129/84; PULSE 104; RESP 15; TEMP 97.9; O2SAT 96
[2025-01-30] MEDS ORDERED: CHLO25CA10 PO (05:23)
--- NOTE | 2025-01-30 05:24 | Physician Documentation ---
History of Present Illness ~ Chief Complaint: Medical Clearance Stated Complaint: REQUESTING MEDICAL CLEARANCE FOR EMPIRE Time Seen by MD: 05:18 Primary Medical Doctor: Alvin Shaw [facility] Patient presents to the emergency room requesting clearance for rehab facility. He states he abuses all manner of different drugs and alcohol. No complaints at this time. 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 Tetanus within 5 years?: Yes Medication Reconciliation Allergies: Coded Allergies: codeine (Verified Allergy, Intermediate, RASH, 01/30/25) Sulfa (Sulfonamide Antibiotics) (Verified Allergy, Unknown, 01/30/25) acetaminophen (Verified Allergy, Unknown, 01/30/25) Miscellaneous Medications Home Med List (No Home Medications), (Reported) Past Medical History Past Medical History: Coronary Artery Disease, Vascular Disease, COPD, Diverticulitis, Hepatitis C, Chronic Kidney Disease, UTI, Arthritis, Chronic Pain, Chronic Back Pain, Anxiety, Depression Past Surgical History: orthopedic surgeries, tonsillectomy Patient History: (COPD) Chronic obstructive lung disease MOTHER Alcohol Use: Abuse Drug Use: marijuana, methamphetamine, heroin Lives with: Spouse Lives In: Homeless Occupation: unemployed Review of Systems ROS All review of systems negative except as per HPI Physical Exam Vital Signs: Temperature: 97.9, Source: Oral, Heart Rate: 104, Respiratory Rate: 15, BP: 129/84, Pulse Oximetry: 96, Weight: 65.910 Oxygen Flow Rate: 0 Physical Exam General: Patient is sleeping, easily arousable in no acute distress. No tremors Head: Normocephalic and atraumatic. Eyes: Conjunctival normal. EOMI. PERRL. ENT: Mucous membranes moist. Neck: Supple, trachea is midline. Chest: Clear to auscultation bilaterally without rales, rhonchi, or wheezes. There is no accessory muscle use or retractions. Cardiac: RRR without murmurs, gallops, or rubs. Progress Results/Orders Results/Orders Vital Signs 01/30/25 04:33 Temp 97.9 Pulse 104 Resp 15 B/P (MAP) 129/84 Pulse Ox 96 O2 Flow Rate 0 Medical Decision Making Findings Patient presents to the emergency room for clearance to go to rehab facility as per HPI. Patient's vitals are reassuring and he had not feel he requires emergent labs or imaging. No signs of any significant alcohol withdrawal. I will give him small amount of Librium to help him. I do believe he is serious about rehabilitation as he is asking for a ride to go directly to [facility] Departure Disposition: HOME / SELF CARE / HOMELESS Impression: Primary Impression: General medical exam Condition: Stable Discharge Instructions: Medical Screening Exam Additional Instructions: You are medically cleared to go to rehab facility. Good luck. I will give you a small amount of medication to help with any alcohol withdrawal. Referrals: NO PRIMARY CARE PROVIDER (PCP) Prescriptions Chlordiazepoxide Hcl (Librium) 25 Mg Capsule 2 CAP PO Q4H PRN for Withdrawal, #12 CAP 0 Refills Prov: COREY MORTON MD 01/30/25 Education Educated: Patient Educated regarding: diagnosis, treatment, need for follow up Signature Scribe Signature: No scribe Attestation: The note accurately reflects work and decisions made by me.Corey Morton MD 01/30/25 05:24 COREY MORTON MD Jan 30, 2025 05:24
== END 2025-01-30 05:35 | disposition home or self-care (01) ==
LOC: ER 04:20
DX: Z00.8 Encounter for other general examination (principal); I25.10 Atherosclerotic heart disease of native coronary artery without angina pectoris; J44.9 Chronic obstructive pulmonary disease, unspecified; M19.90 Unspecified osteoarthritis, unspecified site; N18.9 Chronic kidney disease, unspecified; F41.9 Anxiety disorder, unspecified; F32.A Depression, unspecified; F11.90 Opioid use, unspecified, uncomplicated; F12.90 Cannabis use, unspecified, uncomplicated; F15.90 Other stimulant use, unspecified, uncomplicated; Z88.2 Allergy status to sulfonamides; Z88.5 Allergy status to narcotic agent; Z90.89 Acquired absence of other organs
CPT/HCPCS: 99283

== ENCOUNTER 2025-03-12 19:16 | Emergency (ER) | payer MEDICAID ==
[~2025-03-12] VITALS: Ht 167.6 cm; Wt 68.2 kg
[~2025-03-12 19:16] MED LIST changes: +CHLO25CA10 PO
[2025-03-12 19:18] VITALS: BP 124/80; PULSE 110; RESP 16; TEMP 97.8; O2SAT 95
[2025-03-12] MEDS ORDERED: BACI1PAC7 TOP (20:00)
[2025-03-12] MEDS ORDERED: bacitracin 15gm ointment TP ONE (20:00)
--- NOTE | 2025-03-12 20:02 | Physician Documentation ---
History of Present Illness General Chief Complaint: See Chief Complaint Stated Complaint: LEG NUMBNESS Time Seen by MD: 19:41 Primary Medical Doctor: Alvin Shaw History of Present Illness Initial Comments 65-YEAR-OLD MALE ON SHELTERED PRESENTS TO THE EMERGENCY DEPARTMENT REQUESTING RESOURCES FOR FOOD, CLOTHING AND SOME WOUND CARE. HAS OTHER SCATTERED COMPLAINTS NONEMERGENT NATURE. THESE WERE ADDRESSED NOT REQUIRING FOLLOW UP. REPORTS STEADY THINKS HE MAY HAVE COME IN CONTACT WITH SOME FENTANYL AND USE SOME NARCAN AND IS NOW WELL. Medication Reconciliation Allergies: Coded Allergies: codeine (Verified Allergy, Intermediate, RASH, 03/12/25) Sulfa (Sulfonamide Antibiotics) (Verified Allergy, Unknown, 03/12/25) acetaminophen (Verified Allergy, Unknown, 03/12/25) Scheduled Bacitracin Oint Packet* (Bacitracin Oint Packet*), 1 PKT TOP ONCE Scheduled PRN Chlordiazepoxide Hcl (Librium), 2 CAP PO Q4H PRN for Withdrawal Miscellaneous Medications Home Med List (No Home Medications), (Reported) Past Medical History Past Medical History: Coronary Artery Disease, Vascular Disease, COPD, Diverticulitis, Hepatitis C, Chronic Kidney Disease, UTI, Arthritis, Chronic Pain, Chronic Back Pain, Anxiety, Depression Past Surgical History: orthopedic surgeries, tonsillectomy Smoking: Cigarettes, Greater than 1 pack/day Alcohol Use: Abuse Drug Use: marijuana, methamphetamine, heroin Lives with: Spouse Lives In: Homeless Occupation: unemployed Review of Systems All Other Systems at this time: Reviewed and Negative Integ: Reports: rash, itching, lesions Physical Exam Physical Exam Vital Signs: RN Vital Signs have been reviewed: Yes, Temperature: 97.8, Source: Temporal, Heart Rate: 110, Respiratory Rate: 16, BP: 124/80, Pulse Oximetry: 95, Weight: 68.200 General Appearance: alert, WD/WN, other (We will dressed) Head: normal inspection Face: normal inspection Pupils/EOM/Fundus: PERRLA Respiratory: no respiratory distress Cardiovascular: regular rate, rhythm Gastrointestinal: non-tender Extremities: normal range of motion Neurologic: oriented x4 Motor / Sensory: no motor deficit, no sensory deficit Psychiatric: agitation (Anger and agitated) Skin: other (Scattered excoriated lesions to the lower extremities) Progress Results/Orders Results/Orders Completed Orders - KAL ELIAS PAC Bacitracin Ointment (Bacitracin Ointment (10/22/25 20:00) Vital Signs 03/12/25 19:18 Temp 97.8 Pulse 110 Resp 16 B/P (MAP) 124/80 Pulse Ox 95 Medical Decision Making Additional information obtaine: old records Findings 65-year-old male with a chcf presents to the emergency department requesting psychosocial resource evaluation with the lower extremity itching. Lower extremity chin consistent with parasitosis do not suspect insect for scabies infestation. Numerous offers the patient for topical creams and antihistamine however declines. Food, clothing & psychosocial resources provided to patient. Patient abruptly eventually left the emergency department prior to receiving all resources. Patient is later seen sitting on side and front in the emergency department no acute distress. Differential Diagnosis Psychosocial issues, substance abuse, scabies infestation, bedbugs, parasitosis Departure Disposition: HOME / SELF CARE / HOMELESS Impression: Primary Impression: Sheltered homelessness Additional Impressions: Encounter for medical screening examination Food security Parasitosis Condition: Improved Additional Instructions: PLEASE FOLLOW UP WITH THE COMMUNITY RESOURCES. TONIGHT IN THE EMERGENCY DEPARTMENT YOU RECEIVED ANTIBIOTIC OINTMENT, CLOTHING RESOURCES AND FOOD RESOURCES. PLEASE AVOID ANY RECREATIONAL DRUG USE. Referrals: NO PRIMARY CARE PROVIDER (PCP) Prescriptions Bacitracin Oint Packet* (Bacitracin Oint Packet*) 1 Each Packet 1 PKT TOP ONCE for 30 Days, #30 PKT Prov: KAL ELIAS 03/12/25 Education Educated: Patient Educated regarding: diagnosis, treatment, prognosis, need for follow up Signature Scribe Signature: . Attestation: . KAL ELIAS Mar 12, 2025 20:01
== END 2025-03-12 20:12 | disposition home or self-care (01) ==
LOC: ER 19:16
DX: Z00.00 Encounter for general adult medical examination without abnormal findings (principal); I25.10 Atherosclerotic heart disease of native coronary artery without angina pectoris; F12.90 Cannabis use, unspecified, uncomplicated; J44.9 Chronic obstructive pulmonary disease, unspecified; M19.90 Unspecified osteoarthritis, unspecified site; G89.29 Other chronic pain; F41.9 Anxiety disorder, unspecified; F32.A Depression, unspecified; N18.9 Chronic kidney disease, unspecified; F17.210 Nicotine dependence, cigarettes, uncomplicated; F10.10 Alcohol abuse, uncomplicated; Y90.9 Presence of alcohol in blood, level not specified; Z88.5 Allergy status to narcotic agent; Z88.2 Allergy status to sulfonamides; Z90.89 Acquired absence of other organs; Z87.440 Personal history of urinary (tract) infections; Z86.19 Personal history of other infectious and parasitic diseases; Z79.899 Other long term (current) drug therapy; Z56.0 Unemployment, unspecified; Z59.01 Sheltered homelessness
CPT/HCPCS: 99282